=== PATIENT | female | born 1965 | race Caucasian/White ===

== ENCOUNTER → 2016-09-28 | Outpatient (CLI) | payer MEDICARE, MEDICAID | END | disposition home or self-care (01) | LOC: GMAM 10:34 | PROVIDERS: ATTEND Family Medicine | DX: R30.0 Dysuria (principal) ==

== ENCOUNTER → 2016-10-13 | Outpatient (CLI) | payer MEDICARE, MEDICAID ==
--- NOTE | 2016-10-13 12:01 | US ---
EXAM DESCRIPTION: Soft Tissue,Head/Neck ultrasound CLINICAL HISTORY: 51 years Female, palpable abnormality within the left submandibular fossa of the neck. COMPARISON: None. TECHNIQUE: Grayscale and color Doppler imaging of the seventh mandibular soft tissues was performed. FINDINGS: Today's exam revealed bilateral submandibular glands which are prominent on today's study. There is no mass noted on today's exam. No drainable fluid collection. IMPRESSION: Normal appearing bilateral submandibular glands. Continued pain persists CT of the neck is suggested. Electronically signed by: Reed Phipps MD 10/13/2016 12:00 PM NUMERICAL CONTROL ROUTER OPERATOR
== END | disposition home or self-care (01) ==
LOC: US 10:02
PROVIDERS: ATTEND Family Medicine
DX: R93.8 Abnormal findings on diagnostic imaging of other specified body structures (principal)

== ENCOUNTER → 2016-11-01 | Outpatient (CLI) | payer MEDICARE, MEDICAID | END | disposition home or self-care (01) | LOC: GMA 14:18 | PROVIDERS: ATTEND Nurse Practitioner Acute Care | DX: N39.0 Urinary tract infection, site not specified (principal) ==

== ENCOUNTER → 2016-11-30 | Outpatient (CLI) | payer MEDICARE, MEDICAID | LOC: GMAM 17:20 | PROVIDERS: ATTEND Family Medicine | DX: R31.0 Gross hematuria (principal) ==

== ENCOUNTER → 2016-12-19 | Outpatient (CLI) | payer MEDICARE, MEDICAID | END | disposition home or self-care (01) | LOC: GMAM 14:38 | PROVIDERS: ATTEND Family Medicine | DX: N39.0 Urinary tract infection, site not specified (principal) ==

== ENCOUNTER → 2016-12-21 | Outpatient (CLI) | payer MEDICARE, MEDICAID ==
--- NOTE | 2016-12-21 16:58 | MRI ---
EXAM DESCRIPTION: MRI right knee CLINICAL HISTORY: Right knee pain and swelling COMPARISON: None. TECHNIQUE: Multiplanar, multisequence MR images of the right knee FINDINGS: Complex tear posterior horn medial meniscus with involvement of both superior and inferior articular surfaces. Fraying of the articular surfaces with high-grade radial component of tear. Subluxation of the body the meniscus with intrameniscal signal and linear tear extending to the superior tubular surface near the free edge at the junction with the anterior horn. Subluxation of the anterior horn with degenerative intrameniscal signal throughout. Severe medial femorotibial osteoarthritis with full-thickness chondral loss over the majority of the tibia. Mild scalloped remodeling of the anterior half of the tibia with underlying marrow edema and joint line osteophyte. Flattened remodeling of the femoral condyle with joint line osteophyte containing marrow edema. A broad region of marrow edema over the posterior weightbearing condyle over about 2 x 1.8 cm Mild fraying free edge mid body lateral meniscus. No high-grade chondrosis lateral femorotibial No high-grade chondrosis patellofemoral. Mild surface irregularity/low-grade chondral fissuring grade 2 ACL, PCL, MCL and fibular collateral ligaments are intact Biceps femoris, popliteus and iliotibial band tendons are normal Patellar and quadriceps tendons and tendons of the posterior medial knee are intact Moderate joint effusion with mild synovitis. No intra-articular loose body Moderate osteoarthritis proximal tibiofibular articulation with joint line osteophytes. A couple of small subchondral cysts along both sides of the joint. Periarticular ganglion about 1 cm along the anterior joint line IMPRESSION: Complex medial meniscal tear most significantly affecting the posterior horn. Severe medial femorotibial osteoarthritis Electronically signed by: Zeus Conner MD 12/21/2016 4:57 PM CDT
== END | disposition home or self-care (01) ==
LOC: MRI 07:19
PROVIDERS: ATTEND Family Medicine
DX: M25.561 Pain in right knee (principal)

== ENCOUNTER 2017-02-03 16:06 | Emergency (ER) | payer MEDICARE, MEDICAID ==
[2017-02-03 16:18] VITALS: BP 119/80; TEMP 99.2; O2SAT 96
--- NOTE | 2017-02-03 16:36 | ED.PDOC ---
History of Present Illness - General Chief Complaint: Upper Extremity Injury Stated Complaint: left little finger injury Time Seen by Provider: 02/03/17 16:25 Source: patient, RN notes reviewed, Vital Signs reviewed Exam Limitations: no limitations - History of Present Illness Initial Comments: Patient reports she tripped walking into the kitchen and caught her L pinky finger in the refrigerator door causing it to twist and pop. She is now having pain, swelling bruising and inability to bend due to pain and swelling. No numbness or tingling. Occurred: just prior to arrival Pain - Upper Extremity: severe: Hand, left Improving Factors: rest Worsening Factors: movement Allergies/Adverse Reactions: Allergies Penicillins Allergy (Mild, Verified 05/25/16 19:23) Home Medications: Ambulatory Orders Carbamazepine [Tegretol-Xr] 200 mg PO BEDTIME 06/27/14 Carbamazepine [Tegretol-Xr] 400 mg PO ACBK 06/27/14 Escitalopram [Lexapro] 10 mg PO DAILY 06/27/14 Metformin HCl 1,000 mg PO BID 06/27/14 Trazodone HCl 300 mg PO BEDTIME 06/27/14 Simvastatin [Zocor] 20 mg PO BEDTIME 05/26/15 Dicyclomine HCl 20 mg PO TID PRN 05/30/15 HYDROcodone 7.5MG/APAP 325MG [[place] 7.5/325] 1 tab PO .Q4H PRN 05/30/15 Omeprazole Magnesium [Prilosec Otc] 20 mg PO DAILY 05/30/15 Sucralfate Tab [Carafate Tab] 1 gm PO ACHS 05/30/15 Potassium Chloride Tab [K-Dur] 20 meq PO BID #4 tab 01/19/16 Naproxen [Naprosyn] 500 mg PO BID PRN #30 tab 07/18/16 tiZANidine [Zanaflex] 4 mg PO TID PRN #30 tab 07/18/16 Review of Systems - Review of Systems Constitutional: States: no symptoms reported Respiratory: States: no symptoms reported Cardiology: States: no symptoms reported Musculoskeletal: States: see HPI, joint pain - L 5th PIP joint, joint swelling - L 5th PIP joint Skin: States: change in color - bruising L pinky finger Neurological: Denies: numbness, paresthesia, tingling All other Systems: No Change from Baseline Past Medical History (General) - Patient Medical History Hx Seizures: No Hx Stroke: Yes - 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 Hx Asthma: No Hx of COPD: No Hx Cardiac Disorders: Yes - [place] in her 20's Hx Congestive Heart Failure: No Hx Pacemaker: No Hx Hypertension: No Hx Diabetes: Yes Hx Gastroesophageal Reflux: No Hx MRSA: No Surgical History: cholecystectomy, Hysterectomy - Vaccination History Hx Tetanus, Diphtheria Vaccination: No Hx Influenza Vaccination: No Hx Pneumococcal Vaccination: No - Social History Hx Tobacco Use: No Hx Alcohol Use: No Hx Substance Use: No Hx Substance Use Treatment: No Hx Depression: Yes Hx Physical Abuse: No Hx Emotional Abuse: No - Female History Patient : No Family Medical History - Family History Mother Family History: No Known Living Status: Physical Exam - Physical Exam General Appearance: Alert, Comfortable, No apparent distress, Well Developed, Well Groomed, Well Hydrated, Well Nourished Cardiovascular/Respiratory: other - Brisk capillary refill L fingers Elbow/Forearm Exam: normal inspection, no evidence of injury, normal ROM Wrist Exam: normal inspection, non-tender, no evidence of injury, normal ROM Hand Exam: bone tenderness - L 5th PIP joint, ecchymosis - L 5th PIP joint, limited ROM - L 5th digit due to pain and swelling, soft tissue tenderness, stiffness, swelling Neuro/Tendon: normal sensation, normal motor functions, normal tendon functions , responds to pain Mental Status: alert, oriented x 3 Skin Exam: normal color, warm/dry Progress - EKG/XRAY/CT XRAY: L 5th digit: no fracture Procedures - Splinting Left 5th Digit Hand Pre-Made Type: metal - Aluminum foam finger splint Pre-Proc Neuro Vasc Exam: normal Post-Proc Neuro Vasc Exam: normal Departure - Departure Clinical Impression: Sprain of fifth finger of left hand Qualifiers: Encounter type: initial encounter Qualified Code(s): S63.617A - Unspecified sprain of left little finger, initial encounter Time of Disposition: 16:47 Disposition: Discharge to Home or Self Care Condition: Good Departure Forms: ED Discharge - Pt. Copy, Patient Portal Self Enrollment Instructions: DI for Finger Sprain Diet: resume usual diet Activity: increase activity as tolerated Referrals: Zeus Cheney MD [Primary Care Provider] - 1-2 Weeks Home Medications: Ambulatory Orders Carbamazepine [Tegretol-Xr] 200 mg PO BEDTIME 06/27/14 Carbamazepine [Tegretol-Xr] 400 mg PO ACBK 06/27/14 Escitalopram [Lexapro] 10 mg PO DAILY 06/27/14 Metformin HCl 1,000 mg PO BID 06/27/14 Trazodone HCl 300 mg PO BEDTIME 06/27/14 Simvastatin [Zocor] 20 mg PO BEDTIME 05/26/15 Dicyclomine HCl 20 mg PO TID PRN 05/30/15 HYDROcodone 7.5MG/APAP 325MG [[place] 7.5/325] 1 tab PO .Q4H PRN 05/30/15 Omeprazole Magnesium [Prilosec Otc] 20 mg PO DAILY 05/30/15 Sucralfate Tab [Carafate Tab] 1 gm PO ACHS 05/30/15 Potassium Chloride Tab [K-Dur] 20 meq PO BID #4 tab 01/19/16 Naproxen [Naprosyn] 500 mg PO BID PRN #30 tab 07/18/16 tiZANidine [Zanaflex] 4 mg PO TID PRN #30 tab 07/18/16
--- NOTE | 2017-02-03 16:43 | RAD ---
EXAM DESCRIPTION: Fingers,Left CLINICAL HISTORY: 52 years Female pain,bruising,swelling COMPARISON: None. TECHNIQUE: Left finger, three views FINDINGS: No acute fractures or dislocations are identified. No osseous destructive lesions. No radiopaque foreign object noted. IMPRESSION: No acute fracture is identified. Electronically signed by: Inez Amado 02/03/2017 4:42 PM CDT
== END 2017-02-03 16:53 | disposition home or self-care (01) ==
LOC: ER 16:06
DX: S63.617A Unspecified sprain of left little finger, initial encounter (principal); I25.2 Old myocardial infarction; E11.9 Type 2 diabetes mellitus without complications; Z88.0 Allergy status to penicillin; Z86.73 Personal history of transient ischemic attack (TIA), and cerebral infarction without residual deficits; Z79.899 Other long term (current) drug therapy; X50.1XXA Overexertion from prolonged static or awkward postures, initial encounter; Y92.000 Kitchen of unspecified non-institutional (private) residence as the place of occurrence of the external cause

== ENCOUNTER → 2017-02-10 | Outpatient (CLI) | payer MEDICARE, MEDICAID ==
--- NOTE | 2017-02-10 14:52 | CT ---
EXAM DESCRIPTION: Abdomen/Pelvis w/wo Contrast CLINICAL HISTORY: 52 years,Female,GROSS HEMATURIA R31.0 COMPARISON: None TECHNIQUE: Multiple axial tomographic images were obtained of the abdomen and pelvis with and without IV contrast and oral contrast. Then reconstructed in sagittal and coronal planes. This exam was performed using radiation doses that are As Low As Reasonably Achievable (ALARA). FINDINGS: The kidneys are unremarkable The adrenal glands are unremarkable. The spleen is unremarkable. The liver is unremarkable. The pancrease is unremarkable. The gallbladder surgically absent. The included bowel is unremarkable. The appendix not seen present be surgically absent. Uterus and ovaries not seen also present be surgically absent.. There is no free air, free fluid, masses, or significant adenopathy. There is a small supraumbilical midline hernia measuring about 1.5 cm in diameter with omental fat only in the hernia sac. There is also a TENS unit and generator seen on the left.. IMPRESSION: No acute findings. There is a small midline supraumbilical hernia containing omental fat only. Electronically signed by: Tarik Jones MD 02/10/2017 2:50 PM CDT
== END | disposition home or self-care (01) ==
LOC: CT 09:04
PROVIDERS: ATTEND Urology
DX: R31.0 Gross hematuria (principal)

== ENCOUNTER → 2017-02-20 | Outpatient (CLI) | payer MEDICARE, MEDICAID ==
--- NOTE | 2017-02-20 11:35 | RAD ---
EXAM DESCRIPTION: Ankle,Right 3 Views CLINICAL HISTORY: 52 years, Female, PAIN IN RIGHT ANKLE AND JOINTS OF THE FOOT COMPARISON: May 12, 2015 TECHNIQUE: AP/lateral/oblique of the ankle FINDINGS: Bony structures are markedly osteopenic and interval internal fixation of the medial malleolus with two anchoring screws is noted in comparison to remote prior study. The ankle mortise is well-maintained and no evidence of osteonecrosis of the talus is evident. Calcaneal spurring is unchanged from 2015 study. Previous internal fixation at the midfoot at the junction of the second metatarsal and cuneiform is noted. No acute fracture or disruption of the ankle mortise is noted. IMPRESSION: 1. Osteopenic bony structures with mild degenerative changes and interval internal fixation of the medial malleolus since 2015 study. No acute abnormality noted. Electronically signed by: Zeus Mercer MD 02/20/2017 11:33 AM CDT
--- NOTE | 2017-02-20 11:37 | RAD ---
EXAM DESCRIPTION: Foot,Right 3 Views CLINICAL HISTORY: 52 years, Female, PAIN IN RIGHT FOOT COMPARISON: September 21, 2010 TECHNIQUE: AP, lateral, and oblique views of the right foot FINDINGS: Bony right foot is osteopenic with marked enthesophyte formation at the origin of the plantar arch, unchanged from remote prior study. Interval internal fixation with a single screw at the base of the second metatarsal with the second cuneiform is noted. I am suspicious there is fusion of the base of the second and possibly the third metatarsals to the cuneiforms. An accessory ossicle adjacent to the cuboid is noted. I suspect the joint space between the base of the first metatarsal and cuneiform is intact. IMPRESSION: Osteopenic and modestly degenerative right foot with internal fixation and probable bony fusion at the base of the second metatarsal and possibly the third metatarsal. No acute injury or fracture or stress reaction seen. Electronically signed by: Zeus Mercer MD 02/20/2017 11:36 AM CDT
== END ==
LOC: RAD 08:23
PROVIDERS: ATTEND Orthopaedic Surgery
DX: M79.671 Pain in right foot (principal); M25.571 Pain in right ankle and joints of right foot

== ENCOUNTER → 2017-03-16 | Outpatient (CLI) | payer MEDICARE, MEDICAID | END | disposition home or self-care (01) | LOC: LAB.O 08:10 | PROVIDERS: ATTEND Orthopaedic Surgery | DX: Z01.818 Encounter for other preprocedural examination (principal) ==

== ENCOUNTER → 2017-03-27 | Outpatient (CLI) | payer MEDICARE, MEDICAID ==
--- NOTE | 2017-03-27 16:03 | RAD ---
EXAM DESCRIPTION: Pelvis CLINICAL HISTORY: 52 years Female, RT HIP PAIN COMPARISON: None. FINDINGS: Single AP view of the pelvis shows no displaced right hip or other pelvic fracture. The hip joints are anatomically aligned and the joint spaces are fairly well-maintained. Visualized portions of the lumbar spine are unremarkable. IMPRESSION: Negative exam. Electronically signed by: Michael Pinon MD 03/27/2017 4:02 PM CDT Workstation: [facility]
== END | disposition home or self-care (01) ==
LOC: RAD 09:37
PROVIDERS: ATTEND Orthopaedic Surgery
DX: M25.551 Pain in right hip (principal)

== ENCOUNTER 2017-03-29 05:41 | Inpatient (IN) | payer MEDICARE, MEDICAID ==
--- NOTE | 2017-03-28 08:40 | HP ---
CHIEF COMPLAINT: Right knee pain. HISTORY OF PRESENT ILLNESS: Randa is a 52-year-old female with a history of pain in the right knee that has been going on for quite sometime. She has had no trauma related to that, denies any neurologic symptoms or radiation of pain. She does have some feelings of instability and also has popping which causes severe pain. She denies any distinct locking. She has had injections as well as anti-inflammatories. She has had activity modification. Unfortunately, she has been unable to gain any relief. Because of her failure of relief, she has requested operative intervention. After discussing the risks, benefits and alternatives to that, the patient has given informed consent. PAST SURGICAL HISTORY: 1. Multiple surgeries on both her foot and ankle. MEDICATIONS: 1. Potassium. 2. Vitamins. 3. Metformin. 4. Magnesium. 5. Cyclobenzaprine. ALLERGIES: PENICILLIN. CODE STATUS: Unknown. IMMUNIZATIONS: Up to date. SOCIAL HISTORY: The patient does not drink, smoke or use any illicit drugs. FAMILY HISTORY: None pertinent to today's complaint. REVIEW OF SYSTEMS: Negative except as indicated in the History of Present Illness. PHYSICAL EXAMINATION: VITAL SIGNS: Blood pressure 120/74. Pulse 65. Height 5'4". Weight 186. MENTAL STATUS: The patient is awake, alert, and is able to give a good history and participate in the physical. The patient is oriented to person, place and time. SKIN: Normal tone and turgor. HEENT: Normocephalic, atraumatic. Pupils equal, round and reactive. Mucosal membranes are moist. NECK: Normal range of motion. No thyromegaly, no lymphadenopathy. CHEST: Normal respiratory excursion. CARDIAC: Regular rate and rhythm. No murmurs, rubs or gallops. MUSCULOSKELETAL: Bilateral upper extremities show full active range of motion. She has intact sensation. They are warm and well perfused. There are no deformities. Strength is 5/5. The left lower extremity shows no significant pain with range of motion of the hip or knee. Sensation is intact in the extremity and it is warm and well perfused. She has no varus/valgus or anterior/posterior laxity. She has no overall malalignment. The right lower extremity shows pain diffusely about the knee, but very prominent along the joint-line. She has crepitus throughout her range of motion. She has some pretty significant pain with patella mobilization. She has very slight laxity in varus/valgus testing relative to the contralateral side. IMAGING: X-rays show advanced arthritis of the knee. ASSESSMENT: 1. Arthritis. PLAN: Because of her severe symptoms, ongoing pain and failure of anti- inflammatories, injection and activity modification, she requested operative intervention. We have discussed the risks, benefits, and alternatives to operative intervention and the patient has given informed consent for total knee arthroplasty. #[id number] [facility]
[2017-03-29] MEDS ORDERED: LACTATED RINGERS 1,000 ML ONE (05:54)
[2017-03-29] MEDS ORDERED: SODIUM CHL 0.9% 100ML MINI-BAG 100 ML IVPB ONE (05:54)
[2017-03-29] MEDS ORDERED: SODIUM CHLORIDE 0.9% 100ML 100 ML IVPB ONE (05:55)
[2017-03-29] MEDS ORDERED: VANCOMYCIN HCL INJ 1,000 MG VIAL IVPB ONE ×3 (05:55→18:30)
[2017-03-29] MEDS ORDERED: TRANEXAMIC ACID 1,000 MG/10 ML VIAL ONE ×2 (05:55→05:56)
[2017-03-29] MEDS ORDERED: SODIUM CHLORIDE 0.9% 250ML 250 ML ONE ×2 (05:55→18:30)
[2017-03-29] MEDS ORDERED: ceFAZolin SODIUM 1 GM VIAL ONE ×2 (05:55→08:45)
[2017-03-29] MEDS ORDERED: BUPIVACAINE 0.25% W/EPI 50 ML VIAL INJ ONE (08:45)
[2017-03-29] MEDS ORDERED: MORPHINE SULFATE *EPIDURAL* 0.5 MG/ML VIAL ONE (08:50)
[2017-03-29] MEDS ORDERED: fentaNYL CITRATE INJ 50 MCG/ML AMP ONE (08:50)
[2017-03-29] MEDS ORDERED: ACETAMINOPHEN IV 1000MG 100 ML ONE (08:50)
[2017-03-29] MEDS ORDERED: MIDAZOLAM INJ 5 MG/5 ML VIAL ONE (08:50)
[2017-03-29] MEDS ORDERED: MORPHINE PCA 1 MG/ML 100 ML BAG IVPB ONE (11:52)
[2017-03-29] MEDS ORDERED: ZOLPIDEM TARTRATE 5 MG TAB PO PRN (11:57)
[2017-03-29] MEDS ORDERED: BENZOCAINE-MENTH LOZ (CEPACOL) 1 EA LOZ MT PRN (11:57)
[2017-03-29] MEDS ORDERED: DEX 5% W/NACL 0.45% 1000ML 1,000 ML IVS PRN (11:57)
[2017-03-29] MEDS ORDERED: TEMAZEPAM 15 MG CAP PO PRN (11:57)
[2017-03-29] MEDS ORDERED: PROMETHAZINE HCL INJ 25 MG in SODIUM CHLORIDE 0.9% 50ML 50 ML IVPB PRN (11:57)
[2017-03-29] MEDS ORDERED: ACETAMINOPHEN 500 MG TAB PO PRN (11:57)
[2017-03-29] MEDS ORDERED: TRANEXAMIC ACID INJ 1,000 MG in SODIUM CHLORIDE 0.9% 100ML 100 ML IVPB ONE (11:57)
[2017-03-29] MEDS ORDERED: MORPHINE SULFATE INJ 10 MG/ML VIAL IM PRN (11:57)
[2017-03-29] MEDS ORDERED: MAGNESIUM HYDROXIDE 30 ML UD PO PRN (11:57)
[2017-03-29] MEDS ORDERED: HYDROcodone 5MG/APAP 325MG 1 EA TAB PO PRN (11:57)
[2017-03-29] MEDS ORDERED: NALOXONE HCL INJ 0.4 MG/ML VIAL IV PRN (11:57)
[2017-03-29] MEDS ORDERED: PROMETHAZINE HCL INJ 12.5 MG in SODIUM CHLORIDE 0.9% 50ML 50 ML IVPB PRN (11:57)
[2017-03-29] MEDS ORDERED: SODIUM CHLORIDE 0.9% (FLUSH) 10 ML SYG IV PRN (11:57)
[2017-03-29] MEDS ORDERED: BISACODYL SUPPOSITORY 10 MG PR PRN (11:57)
[2017-03-29] MEDS ORDERED: MORPHINE SULFATE INJ 10 MG/ML VIAL IV PRN (11:57)
[2017-03-29] MEDS ORDERED: ALUMINUM & MAGNESIUM HYDROXIDE 30 ML UD PO PRN (11:57)
[2017-03-29] MEDS ORDERED: ACETAMINOPHEN 325 MG TAB PO PRN (11:57)
[2017-03-29] MEDS ORDERED: raNITIdine HCL INJ 25 MG/ML VIAL IV ONE (12:00)
[2017-03-29] MEDS ORDERED: MORPHINE PCA 1 MG/ML 100ML 1 BAG in PREMIX BAG 1 BAG IVPB SCH (12:00)
[2017-03-29] MEDS ORDERED: DEXAMETHASONE INJ 10 MG/ML VIAL IV ONE (12:00)
[2017-03-29] MEDS ORDERED: SODIUM CHLORIDE 0.9% 50 ML VIAL INJ ONE (12:00)
[2017-03-29] MEDS ORDERED: LIDOCAINE 1% 10 ML VIAL INJ ONE (12:00)
[2017-03-29] MEDS ORDERED: PROPOFOL 200 MG/20 ML VIAL IV ONE (12:00)
[2017-03-29] MEDS: ONDANSETRON INJ 4 MG/2 ML VIAL IV PRN (12:43)
--- NOTE | 2017-03-29 13:58 | OP ---
DATE OF PROCEDURE: 03/29/17 PREOPERATIVE DIAGNOSIS: 1. Osteoarthritis of the knee. POSTOPERATIVE DIAGNOSIS: 1. Osteoarthritis of the knee. PROCEDURE: 1. Total knee arthroplasty. SURGEON: Patricio Moon MD. BOARD OF EDUCATION SECRETARY: Christiano Piña CST, SA-C. ANESTHESIA: General. COMPLICATIONS: None. FINDINGS: Severe arthritis of the knee. INDICATION: Ms. Villanueva has a history of pain that has been getting progressively worse and has failed conservative measures. Because of ongoing pain and failure of conservative measures, she has requested total knee arthroplasty. After discussing the risks, benefits and alternatives to that, the patient has given informed consent for total knee arthroplasty. PROCEDURE: The patient was brought to the Operating Room and placed in supine position. General anesthesia was induced and the patient's leg was sterilely prepped and draped. Following prepping and draping, the distal femur was exposed and using an intramedullary guide, the distal femoral cut was made. The appropriate sized cutting block was measured, pinned into place, and the anterior, posterior, and chamfer cuts were made. The ACL was transected and the tibia was subluxed. Both the medial and lateral menisci were removed. An intramedullary guide was used to make the proximal tibial cut. The appropriate sized base plate was placed and a trial polyethylene was placed. The trial femur was placed, the knee was reduced, and the knee was taken through a range of motion. The knee was stable in anterior, posterior, varus and valgus stress. The patella tracked anatomically without evidence of subluxation or dislocation. After trialing, the trial components were removed and the bony surfaces were thoroughly irrigated with saline. Following irrigation, the surfaces were dried and the final components were cemented into place. The excess cement was removed and the remaining cement was allowed to cure. The knee was again taken through a range of motion to confirm stability. The wound was then irrigated with saline and closure was performed using PDS to approximate the arthrotomy followed by closure of the subcutaneous tissues with a combination of running and interrupted Monocryl sutures. Sterile dressing was placed. The patient was awoken from anesthesia and taken to Recovery. POSTOPERATIVE INSTRUCTIONS: The patient will be weight-bearing as tolerated on postoperative day 1. COMPONENTS: [employer] Triathlon knee, size 3 femur, size 3 tibia, 9 mm insert. #[id number] [facility]
[2017-03-29] MEDS ORDERED: SODIUM CHLORIDE 0.45% 1000ML 1,000 ML IVS PRN (14:35)
[2017-03-29] MEDS: IV SET AND CAP CHANGE INJ INJ SCH (16:01)
[2017-03-29] MEDS: CEFAZOLIN SODIUM 2 GRAMS IV 50 ML IVPB SCH ×2 (16:19→23:59)
[2017-03-29] MEDS: CELECOXIB 100 MG CAP PO SCH (16:45)
[2017-03-29] MEDS ORDERED: GLUCAGON INJ 1 MG VIAL SUBCU PRN (18:27)
[2017-03-29] MEDS ORDERED: DEXTROSE 50% 25 GM/50 ML SYG IV PRN (18:27)
[2017-03-29] MEDS ORDERED: PANTOPRAZOLE SODIUM IV 40 MG VIAL IV SCH (18:30)
[2017-03-29] MEDS: VANCOMYCIN HCL INJ 1,000 MG in SODIUM CHLORIDE 0.9% 250ML 250 ML IVPB SCH (18:34)
--- NOTE | 2017-03-29 18:56 | CONS ---
DATE OF CONSULTATION: 03/29/17 SUPERVISING PHYSICIAN: Geronimo Santos M.D. CHIEF COMPLAINT: Right knee pain. HISTORY OF PRESENT ILLNESS: This is a 52 year-old female with a history of pain in the right knee that has been going on for several years. She has feelings of instability and popping, and this causes her severe pain. She has had injections in the knee as well as been on antiinflammatories and after conservative measures have failed, she has requested Dr. Patricio Moon for surgical intervention. I am seeing the patient postoperatively after a right total knee arthroplasty. PAST MEDICAL HISTORY: 1. Gastroesophageal reflux disease. 2. Osteopenia. 3. Type 2 diabetes mellitus. 4. Bipolar disorder. 5. Anxiety with depression. 6. Migraine headaches. 7. Hyperlipidemia. 8. Obstructive sleep apnea. PAST SURGICAL HISTORY: 1. Cholecystectomy. 2. Hysterectomy. 3. Tubal ligation. 4. Spine surgery. 5. Open reduction and internal fixation of right foot. OUTPATIENT MEDICATIONS: Per the EMR and awaiting verification. ALLERGIES: PENICILLIN. SOCIAL HISTORY: She is disabled. She is . She has 3 children. She quit smoking in 1989. She denies any ETOH or illicit drug use. REVIEW OF SYSTEMS: Negative except as per history of present illness. PHYSICAL EXAMINATION: VITAL SIGNS: She is afebrile, heart rate 68, blood pressure 128/80, respiratory rate 16, O2 sat is 94% on 2 liters nasal cannula. GENERAL: This is a 52 year-old female patient who is lying in her hospital bed. She is in no acute distress. HEENT: Normocephalic and atraumatic. Pupils are equal and reactive. Oropharynx is clear. Oral mucous membranes are moist. NECK: Supple without mass. CHEST: Clear to auscultation bilaterally. There is equal rise and fall of the chest with inspiration and expiration. HEART: Regular rate and rhythm. ABDOMEN: Soft, nondistended, non-tender. Bowel sounds are positive. EXTREMITIES: Bilateral pedal pulses are palpable at +2. She has an Iceman in place to the right knee. Her dressing is dry and intact. NEUROLOGIC: She is awake, alert and oriented times three. LABORATORY: Glucose is 101. There are no other labs to report. Films as per the EMR. ASSESSMENT: 1. Osteoarthritis status post right total knee arthroplasty performed by Dr. Patricio Moon, orthopedic surgeon, postoperative day number zero. 2. Gastroesophageal reflux disease. 3. Diabetes mellitus type 2. 4. Hyperlipidemia. 5. Bipolar disorder. 6. Anxiety with depression. PLAN: We will continue present supportive care. Orthopedic issues will be per Dr. Moon, orthopedic surgeon. Tomorrow she will begin her strengthening and conditioning with Physical Therapy. I have restarted her home medications, including sliding scale insulin. I have also given her a dose of Protonix. We will continue to monitor her closely and followup as needed. Dr. Santos is the collaborating physician available for consultation. #[id number] [facility]
[2017-03-29] MEDS ORDERED: ENOXAPARIN SODIUM 30 MG/0.3 ML SYG SUBCU ONE (20:30)
[2017-03-29] MEDS ORDERED: CYCLOBENZAPRINE HCL 10 MG TAB PO PRN (20:51)
[2017-03-29] MEDS ORDERED: ELETRIPTAN HYDROBROMIDE 20 MG PO PRN (20:51)
[2017-03-29] MEDS ORDERED: TRAZODONE HCL 350 MG PO SCH (21:00)
[2017-03-29] MEDS ORDERED: carBAMazepine 200 MG TAB ONE (21:23)
[2017-03-29] MEDS: ENOXAPARIN SODIUM 30 MG/0.3 ML SYG SUBCU SCH (21:30)
[2017-03-29] MEDS: CARBAMAZEPINE 200 MG PO SCH (21:30)
[2017-03-29] MEDS: metFORMIN HCL 500 MG TAB PO SCH (21:30)
[2017-03-29] MEDS: POTASSIUM CHLORIDE 20 MEQ TAB PO SCH (21:30)
[2017-03-29] MEDS: DOCUSATE CALCIUM 240 MG CAP PO SCH (21:30)
[2017-03-29] MEDS: SIMVASTATIN 20 MG TAB PO SCH (21:34)
[2017-03-29] MEDS: INSULIN LISPRO 100 UNITS/ML PEN SUBCU SCH (22:28)
[2017-03-29] MEDS ORDERED: traZODone HCL 50 MG TAB ONE (22:29)
[2017-03-29] MEDS ORDERED: traZODone HCL 100 MG TAB PO ONE (22:30)
[2017-03-30] MEDS ORDERED: SODIUM CHLORIDE 0.9% 250ML 250 ML ONE (04:55)
[2017-03-30] MEDS ORDERED: VANCOMYCIN HCL INJ 1,000 MG VIAL IVPB ONE (04:55)
[2017-03-30] MEDS: VANCOMYCIN HCL INJ 1,000 MG in SODIUM CHLORIDE 0.9% 250ML 250 ML IVPB SCH (05:24)
[2017-03-30] MEDS ORDERED: ESCITALOPRAM 10 MG TAB ONE (06:37)
[2017-03-30] MEDS: CARBAMAZEPINE 400 MG PO SCH (06:39)
[2017-03-30] MEDS: CYCLOBENZAPRINE HCL 10 MG TAB PO PRN (06:40)
[2017-03-30] MEDS ORDERED: NON-FORMULARY MEDICATION 1 EA MIS (Escitalopram Oxalate [Lexapro] 20 MG) PO SCH (07:00)
[2017-03-30] MEDS: INSULIN LISPRO 100 UNITS/ML PEN SUBCU SCH ×4 (07:30→21:09)
[2017-03-30] MEDS: CELECOXIB 100 MG CAP PO SCH ×2 (07:59→17:32)
--- NOTE | 2017-03-30 08:14 | PN ---
DATE: 03/30/17 SUBJECTIVE: Ms. Villanueva is doing okay and she is getting adequate pain control, but does have her leg bent right now at 45 degrees. OBJECTIVE: Afebrile. Vital signs stable. The dressing is clean without any staining or drainage. ASSESSMENT: Status post total knee arthroplasty. PLAN: She will begin weight-bearing as tolerated today and continue with the CPM. #[id number] [facility]
[2017-03-30] MEDS: CEFAZOLIN SODIUM 2 GRAMS IV 50 ML IVPB SCH (09:06)
[2017-03-30] MEDS: MAGNESIUM OXIDE 400 MG TAB PO SCH (09:47)
[2017-03-30] MEDS: POTASSIUM CHLORIDE 20 MEQ TAB PO SCH ×2 (09:47→17:32)
[2017-03-30] MEDS: metFORMIN HCL 500 MG TAB PO SCH ×2 (09:47→17:33)
[2017-03-30] MEDS: HYDROcodone 10MG/APAP 325MG 1 EA TAB PO PRN ×2 (10:17→17:33)
[2017-03-30] MEDS: ENOXAPARIN SODIUM 30 MG/0.3 ML SYG SUBCU SCH ×2 (11:00→22:50)
--- NOTE | 2017-03-30 13:27 | RAD ---
EXAM DESCRIPTION: Knee,Right 2 or More Views CLINICAL HISTORY: 52 years Female, TKA COMPARISON: None. FINDINGS: 2 views of the right knee show postoperative changes related to recent right knee arthroplasty. No hardware complication is identified. Gas and fluid in the right knee joint space is also likely related to recent surgery. No suspicious foreign body. IMPRESSION: Uncomplicated postoperative changes in the right knee as detailed above. Electronically signed by: Michael Pinon MD 03/30/2017 1:25 PM CDT
[2017-03-30] MEDS: PANTOPRAZOLE SODIUM TAB 40 MG PO SCH (17:32)
--- NOTE | 2017-03-30 18:03 | PN ---
DATE: 03/30/17 SUPERVISING PHYSICIAN: Geronimo Santos M.D. SUBJECTIVE: The patient is sleeping in her hospital bed. She is quite lethargic but she does awaken and answer some simple questions easily. Nursing staff has reported that she reports quite a bit of pain, although she is fairly lethargic at this time and has no complaints of pain or nausea and vomiting. OBJECTIVE: VITAL SIGNS: T max 24 hours is 99.2, pulse rate 81, blood pressure 128/76, respiratory rate 18, O2 sat is 93% on room air. RESPIRATORY: Clear to auscultation bilaterally. Slightly diminished at the bases. CARDIAC: Regular rate and rhythm. ABDOMEN: Soft, nondistended, non-tender. Bowel sounds are positive. EXTREMITIES: Bilateral pedal pulses are +2 and palpable. Her right knee has an Iceman in place and the CPM machine is in use at this time. NEUROLOGIC: She is lethargic. She awakens easily, answers simple yes/no questions at this time. LABORATORY: Hemoglobin 11.7, hematocrit 36. Blood sugars have alternated between 101 and 224. All other labs and films have been reviewed via the EMR. ASSESSMENT: 1. Osteoarthritis status post right total knee arthroplasty performed by Dr. Patricio Moon, orthopedic surgeon, postoperative day #1. 2. Gastroesophageal reflux disease. 3. Diabetes mellitus type 2. 4. Hyperlipidemia. 5. Bipolar disorder. 6. Anxiety with depression. PLAN: We will continue present supportive care. I have encouraged good pulmonary hygiene, especially since she had a low-grade temperature and I will order EzPAP. Orthopedic issues will be per Dr. Moon. She will continue her strengthening and conditioning with Physical Therapy. It was brought to my attention that she cannot afford her Xarelto, so she has some samples of 15 mg Xarelto in her med drawer. Paulina Acosta, our Hat Ironer, is going to okay that with Dr. Moon. There is also a question as to where she is going to do her rehab after she is discharged, and Paulina will be able to fill us in on that. She was complaining of pain and that her INTEGRATION DIRECTOR was ineffective. I have gone down on her INTEGRATION DIRECTOR pump interval and slightly increased her oral pain medications, although those may have to be adjusted if she continues to be lethargic. We will monitor her closely and follow as needed. Dr. Santos is the collaborating physician available for consultation. [facility][id number] [facility]
[2017-03-30] MEDS ORDERED: traZODone HCL 100 MG TAB PO ONE (19:22)
[2017-03-30] MEDS: TRAZODONE HCL PO SCH ×2 (20:24)
[2017-03-30] MEDS: SIMVASTATIN 20 MG TAB PO SCH (20:24)
[2017-03-30] MEDS: DOCUSATE CALCIUM 240 MG CAP PO SCH (20:24)
[2017-03-30] MEDS: ALBUTEROL SULFATE 2.5 MG/3 ML VIAL NEB SCH (20:25)
[2017-03-30] MEDS: CARBAMAZEPINE 200 MG PO SCH (20:26)
[2017-03-31] MEDS: CYCLOBENZAPRINE HCL 10 MG TAB PO PRN ×3 (01:08→22:44)
[2017-03-31] MEDS: HYDROcodone 10MG/APAP 325MG 1 EA TAB PO PRN ×5 (01:08→19:55)
[2017-03-31] MEDS: PANTOPRAZOLE SODIUM TAB 40 MG PO SCH (05:53)
[2017-03-31] MEDS: INSULIN LISPRO 100 UNITS/ML PEN SUBCU SCH ×4 (07:43→21:13)
[2017-03-31] MEDS: ESCITALOPRAM 10 MG TAB PO SCH (07:45)
[2017-03-31] MEDS: CARBAMAZEPINE 400 MG PO SCH (07:45)
[2017-03-31] MEDS: CELECOXIB 100 MG CAP PO SCH ×2 (07:45→16:33)
[2017-03-31] MEDS: metFORMIN HCL 500 MG TAB PO SCH ×2 (07:46→16:33)
[2017-03-31] MEDS: POTASSIUM CHLORIDE 20 MEQ TAB PO SCH ×2 (07:47→16:33)
--- NOTE | 2017-03-31 08:04 | PN ---
DATE: 03/31/17 SUBJECTIVE: Ms. Villanueva is doing pretty well today and she did well with physical therapy yesterday per report. OBJECTIVE: Afebrile. Vital signs stable. Wound is clean. There are no signs or symptoms of infection. ASSESSMENT: Status post total knee arthroplasty. PLAN: She will continue with weight-bearing as tolerated. She will be discharged when all the goals are met. [facility][id number] [facility]
[2017-03-31] MEDS: MAGNESIUM OXIDE 400 MG TAB PO SCH (08:18)
[2017-03-31] MEDS: SODIUM CHLORIDE 0.9% (FLUSH) 10 ML SYG IV SCH ×2 (08:19→21:14)
[2017-03-31] MEDS: ALBUTEROL SULFATE 2.5 MG/3 ML VIAL NEB SCH ×3 (08:22→20:40)
[2017-03-31] MEDS: ENOXAPARIN SODIUM 30 MG/0.3 ML SYG SUBCU SCH ×2 (10:13→22:44)
--- NOTE | 2017-03-31 14:23 | PN ---
DATE: 03/31/17 SUBJECTIVE: The patient is ambulating in the hallway and admitting that there is a fair amount of pain. She also has diminished appetite and will be encouraged to continue with proper and adequate nutritional support. OBJECTIVE: VITAL SIGNS: Afebrile. Pulse 87. Blood pressure 135/85. Pulse oximetry 96% on room air. GENERAL: She is able to ambulate, though complaining of a fair amount of pain in the right knee. No draining into the dressing of the right knee. LUNGS: Clear. HEART: Regular. ABDOMEN: No bowel movement recently. Will attempt to discuss with the physical therapist the patient's progress and whether she will need the consideration of Swing Bed continued rehabilitation in the near future. ASSESSMENT: 1. Postoperative day #2 status post total knee arthroplasty performed by Dr. Patricio Moon, orthopedic surgeon, because of intractable pain, unresponsive to outpatient intervention and requiring surgical intervention for symptom relief. 2. Osteoarthritis, especially involving the right knee and requiring surgical intervention to assist with symptom control. 3. History of gastroesophageal reflux disease. 4. History of diabetes mellitus, type 2. 5. History of hyperlipidemia. 6. History of bipolar disorder. 7. History of anxiety with associated depression. PLAN: We will continue with ongoing physical therapy under orthopedic supervision. We will discuss with them as to whether the patient would benefit from Swing Bed rehabilitation to continue until the patient is safe to return home. At that time, she will need to be continued on Xarelto for a total of 12 days. Social Service is helping to make the Xarelto available. Continue with proper nutrition and consider Milk of Magnesia to assist with constipation treatment. #[id number] [facility]
[2017-03-31] MEDS ORDERED: traZODone HCL 50 MG TAB ONE (19:43)
[2017-03-31] MEDS ORDERED: traZODone HCL 100 MG TAB PO ONE (19:43)
[2017-03-31] MEDS: ONDANSETRON INJ 4 MG/2 ML VIAL IV PRN (20:23)
[2017-03-31] MEDS: TRAZODONE HCL PO SCH ×2 (21:13)
[2017-03-31] MEDS: SIMVASTATIN 20 MG TAB PO SCH (21:14)
[2017-03-31] MEDS: DOCUSATE CALCIUM 240 MG CAP PO SCH (21:14)
[2017-03-31] MEDS: CARBAMAZEPINE 200 MG PO SCH (21:15)
[2017-03-31] MEDS: carBAMazepine 200 MG TAB PO SCH (21:32)
[2017-04-01] MEDS: HYDROcodone 10MG/APAP 325MG 1 EA TAB PO PRN ×5 (00:36→20:18)
[2017-04-01] MEDS: ESCITALOPRAM 10 MG TAB PO SCH (06:42)
[2017-04-01] MEDS: PANTOPRAZOLE SODIUM TAB 40 MG PO SCH (06:42)
[2017-04-01] MEDS: ALBUTEROL SULFATE 2.5 MG/3 ML VIAL NEB SCH ×3 (07:59→20:48)
[2017-04-01] MEDS: INSULIN LISPRO 100 UNITS/ML PEN SUBCU SCH ×4 (08:23→21:07)
[2017-04-01] MEDS: metFORMIN HCL 500 MG TAB PO SCH ×2 (08:23→16:59)
[2017-04-01] MEDS: carBAMazepine 200 MG TAB PO SCH ×2 (08:24→21:08)
[2017-04-01] MEDS: SODIUM CHLORIDE 0.9% (FLUSH) 10 ML SYG IV SCH ×2 (08:24→21:07)
[2017-04-01] MEDS: POTASSIUM CHLORIDE 20 MEQ TAB PO SCH ×2 (08:24→17:00)
[2017-04-01] MEDS: CELECOXIB 100 MG CAP PO SCH ×2 (08:24→17:00)
[2017-04-01] MEDS: MAGNESIUM OXIDE 400 MG TAB PO SCH (08:24)
[2017-04-01] MEDS: ENOXAPARIN SODIUM 30 MG/0.3 ML SYG SUBCU SCH ×2 (11:16→22:44)
[2017-04-01] MEDS: IV SET AND CAP CHANGE INJ INJ SCH (16:21)
[2017-04-01] MEDS: levoFLOXacin 500 MG TAB PO SCH (16:59)
--- NOTE | 2017-04-01 17:04 | PN ---
DATE: 04/01/17 SUBJECTIVE: The patient is smiling and, in fact, feels much better. She is able to get out of bed generally by herself. We will need to discuss with her family her support system at home and anticipate equipment when she does get home to facilitate ongoing care, less reid to the bathroom as she has had before but a repeat urinalysis has been ordered. OBJECTIVE: VITAL SIGNS: Afebrile. Pulse 88. Blood pressure 122/78. Pulse oximetry 99%, GENERAL: The patient is awake and alert. LUNGS: Clear. HEART: Tones are regular. ABDOMEN: Soft, no draining into the dressings of the right knee. LABORATORY: Chemistry shows fasting blood sugar of 137 this morning. Urinalysis was performed 3 days after the previous one and it does show a positive nitrite with epithelial cells, rare bacteria and culture pending. ASSESSMENT: 1. Postoperative day #3 status post total right knee arthroplasty performed by Dr. Patricio Moon, orthopedic surgeon, because of intractable pain failing to respond to outpatient intervention and requiring surgical intervention for symptom relief. 2. Osteoarthritis, especially involving the right knee and requiring surgical intervention to help control symptoms. . 3. History of gastroesophageal reflux disease. 4. History of diabetes mellitus, type 2. 5. History of hyperlipidemia. 6. History of bipolar disorder. 7. History of anxiety with associated depression. 8. History of possible urinary tract infection with urinary urgency with nitrites positive and culture pending. Started on Levaquin initially as a low-dose , especially in the postoperative period. PLAN: Start on Levaquin 250 mg daily, awaiting culture results hopefully by in the morning. Continue to work on deep breathing and DVT prophylaxis. To discuss with family her support structures at home. May require home health to assist and is requesting a bedside commode, a walker and a shower chair. Close followup and reevaluation in the morning. [facility][id number] [facility]
[2017-04-01] MEDS ORDERED: traZODone HCL 100 MG TAB PO ONE (19:47)
[2017-04-01] MEDS ORDERED: traZODone HCL 50 MG TAB ONE (19:47)
[2017-04-01] MEDS: CYCLOBENZAPRINE HCL 10 MG TAB PO PRN (19:54)
[2017-04-01] MEDS ORDERED: BISACODYL SUPPOSITORY 10 MG PR ONE (21:00)
[2017-04-01] MEDS ORDERED: MAGNESIUM HYDROXIDE 30 ML UD PO ONE (21:00)
[2017-04-01] MEDS: TRAZODONE HCL PO SCH ×2 (21:06)
[2017-04-01] MEDS: DOCUSATE CALCIUM 240 MG CAP PO SCH (21:07)
[2017-04-01] MEDS: SIMVASTATIN 20 MG TAB PO SCH (21:08)
[2017-04-02] MEDS: HYDROcodone 10MG/APAP 325MG 1 EA TAB PO PRN ×5 (04:17→23:46)
[2017-04-02] MEDS: ESCITALOPRAM 10 MG TAB PO SCH (06:39)
[2017-04-02] MEDS: PANTOPRAZOLE SODIUM TAB 40 MG PO SCH (06:39)
[2017-04-02] MEDS: INSULIN LISPRO 100 UNITS/ML PEN SUBCU SCH ×4 (07:33→21:11)
[2017-04-02] MEDS: CELECOXIB 100 MG CAP PO SCH ×2 (07:34→17:32)
[2017-04-02] MEDS: POTASSIUM CHLORIDE 20 MEQ TAB PO SCH ×2 (07:35→17:31)
[2017-04-02] MEDS: metFORMIN HCL 500 MG TAB PO SCH ×2 (07:35→17:31)
[2017-04-02] MEDS: MAGNESIUM OXIDE 400 MG TAB PO SCH (08:06)
[2017-04-02] MEDS: SODIUM CHLORIDE 0.9% (FLUSH) 10 ML SYG IV SCH ×2 (08:06→20:15)
[2017-04-02] MEDS: carBAMazepine 200 MG TAB PO SCH ×2 (08:07→20:15)
[2017-04-02] MEDS: ALBUTEROL SULFATE 2.5 MG/3 ML VIAL NEB SCH ×3 (08:44→20:07)
[2017-04-02] MEDS: ENOXAPARIN SODIUM 30 MG/0.3 ML SYG SUBCU SCH ×2 (11:39→22:58)
--- NOTE | 2017-04-02 17:29 | PN ---
DATE: 04/02/17 SUBJECTIVE: The patient is in the bed with the CPM machine on. She has limited it to only 45 degrees today. She apparently had some discomfort last evening when he CPM was up to 90%. Some of the discomfort though has resulted when some family were trying to help her get up in the bed. Because of this, she is going a little easier but is encouraged to continue to increase steadily until she can reach the goals set for her for her rehabilitation. Appetite is pretty good. No shortness of breath. In discomfort, asking for pain medications. OBJECTIVE: Afebrile, pulse 82, blood pressure 132/82, pulse oximetry 98% on room air. LUNGS: Clear. HEART: Tones regular. ABDOMEN: Soft, no drainage at the site of the right knee incision dressing. She has been a little more active yesterday than today, but will need to get back up into her rehab pace as the day goes on. LABORATORY: Urinalysis yesterday revealed positive nitrites and the patient was started on Ceftin for at least 3 days. Urine culture since yesterday has shown no growth, but will be continued to be followed closely. ASSESSMENT: 1. Postoperative day #3 status post total right knee arthroplasty performed by Dr. Patricio Moon, orthopedic surgeon, because of intractable pain failing to respond to outpatient intervention and requiring surgical intervention for symptom relief. 2. Osteoarthritis, especially involving the right knee and requiring surgical intervention to help control symptoms. . 3. History of gastroesophageal reflux disease. 4. History of diabetes mellitus, type 2. 5. History of hyperlipidemia. 6. History of bipolar disorder. 7. History of anxiety with associated depression. 8. History of possible urinary tract infection with urinary urgency with nitrites positive and culture pending. Started on Levaquin initially as a low-dose , especially in the postoperative period. PLAN: The patient is encouraged to increase her CPM up to 90 and 95 degrees as soon as feasible and to continue with her rehabilitation on an active basis. Will write prescriptions at this time to be picked up by tomorrow for walker, bedside commode and a shower chair. Continue close observation and arrange for eventual home support when she does go home. [facility][id number] [facility]
[2017-04-02] MEDS: levoFLOXacin 500 MG TAB PO SCH (17:31)
[2017-04-02] MEDS ORDERED: traZODone HCL 100 MG TAB PO ONE (20:05)
[2017-04-02] MEDS ORDERED: traZODone HCL 50 MG TAB ONE (20:05)
[2017-04-02] MEDS: SIMVASTATIN 20 MG TAB PO SCH (20:15)
[2017-04-02] MEDS: CYCLOBENZAPRINE HCL 10 MG TAB PO PRN (20:15)
[2017-04-02] MEDS: TRAZODONE HCL PO SCH ×2 (20:15)
[2017-04-02] MEDS: DOCUSATE CALCIUM 240 MG CAP PO SCH (20:16)
[2017-04-03] MEDS: HYDROcodone 10MG/APAP 325MG 1 EA TAB PO PRN ×2 (03:55→09:08)
[2017-04-03] MEDS: ESCITALOPRAM 10 MG TAB PO SCH (06:26)
[2017-04-03] MEDS: PANTOPRAZOLE SODIUM TAB 40 MG PO SCH (06:26)
[2017-04-03] MEDS: INSULIN LISPRO 100 UNITS/ML PEN SUBCU SCH (07:54)
[2017-04-03] MEDS: metFORMIN HCL 500 MG TAB PO SCH (08:29)
[2017-04-03] MEDS: CELECOXIB 100 MG CAP PO SCH (08:30)
[2017-04-03] MEDS: POTASSIUM CHLORIDE 20 MEQ TAB PO SCH (08:30)
--- NOTE | 2017-04-03 08:54 | PN ---
DATE: 04/03/17 SUBJECTIVE: She is doing really well. She has been ambulating. OBJECTIVE: Afebrile. Vital signs stable. Wound is clean. There are no signs or symptoms of infection. ASSESSMENT: Status post total knee arthroplasty. PLAN: She will be discharged home today with physical therapy being performed in home health capacity. [facility][id number] [facility]
[2017-04-03] MEDS: SODIUM CHLORIDE 0.9% (FLUSH) 10 ML SYG IV SCH (09:07)
[2017-04-03] MEDS: carBAMazepine 200 MG TAB PO SCH (09:07)
[2017-04-03] MEDS: MAGNESIUM OXIDE 400 MG TAB PO SCH (09:07)
[2017-04-03 11:09] VITALS: BP 121/82; TEMP 98; O2SAT 96
[2017-04-03] MEDS: ENOXAPARIN SODIUM 30 MG/0.3 ML SYG SUBCU SCH (12:06)
--- NOTE | 2017-04-03 17:24 | DS ---
SUPERVISING PHYSICIAN: Zeus Cheney M.D. DISCHARGE DIAGNOSIS: 1. Postoperative day #4 status post total right knee arthroplasty performed by Dr. Patricio Moon, orthopedic surgeon, secondary to intractable pain failing to respond to outpatient intervention and requiring surgical intervention for symptom relief. 2. Osteoarthritis, especially involving the right knee and requiring surgical intervention to help control symptoms. . 3. History of gastroesophageal reflux disease. 4. History of diabetes mellitus, type 2. 5. History of hyperlipidemia. 6. History of bipolar disorder. 7. History of anxiety with associated depression. 8. Questionable urinary tract infection on admission showing positive nitrites on urine dipstick with culture results showing no growth with the patient being on Levaquin for 4 days having been stopped at time of discharge. HISTORY OF PRESENT ILLNESS: Ms. Villanueva is a 52 year-old female that has a history of pain to the right knee that had been going on for several years. She had noted that there were feelings of instability and popping that had caused her severe pain. She had had multiple injections in the knee as well as been on antiinflammatories and other conservative measures, but all had failed to provide any significant relief. She had requested Dr. Patricio Moon perform surgical intervention for a total right knee arthroplasty for symptom control. The patient was seen postoperatively. LABORATORY: Postoperative H&H was 11.7 and 36.0, blood sugars were 113 to 160. Urinalysis on admission showed trace of blood, rare bacteria with repeat urinalysis on 04/01/17 after admission showing positive nitrites, 2.0 urobilinogen, however urine color was orange and microscopic revealed zero WBC, RBCs, but greater than 50 epithelials and rare bacteria with a large amount of mucous. MICROBIOLOGY: Urine culture shows no growth at 48 hours. HOSPITAL COURSE: Ms. Villanueva was admitted on 03/29/17 and had a total right knee arthroplasty as noted above with no complications noted. Please refer to Operative note for full details from Dr. Moon. She was seen in the immediate postoperative state and was in stable condition. Had good pain control. She was able to participate with her physical therapy regimen and was felt strong enough and improved to the point that she could be discharged to continue with outpatient treatment therapy with home health physical therapy with [facility]. PLAN: Ms. Villanueva was discharged on 04/03/17 with instructions to have close clinical followup with Dr. Moon as scheduled. She was to continue with physical therapy with home health physical therapy arranged through [facility]. She was to resume her home medications as instructed and take new prescriptions that were prescribed as directed. She was told to return to the hospital should she have any concerning symptoms or any questions to call Dr. Moon's office. At discharge, she was provided pain medicines that included: 1. [place] 5/[address] Moon. 2. Samples for Xarelto 15 mg daily for 6 days. All other prescriptions were continued as prior to hospitalization. Diet at discharge was diabetic diet as tolerated. Activities were as per Physical Therapy as tolerated with a walker. She was to shower and have no tub baths. Discharge condition was stable and improved. [facility][id number] [facility]
== END 2017-04-03 15:50 | disposition home health service (06) | DRG 470 ==
LOC: AMB 05:41 → MS 08:23 → UNDOADMIN 13:15 → MS 13:15 → UNDOADMIN 03-31 08:36 → MS 03-31 08:36 → UNDODISIN 04-03 11:50
PROVIDERS: ADMIT Orthopaedic Surgery; ATTEND Nurse Practitioner Family
PROC: 0SRC0J9 Replacement of Right Knee Joint with Synthetic Substitute, Cemented, Open Approach (ICD-10-PCS; principal; 2017-03-29 09:45)
DX: M17.11 Unilateral primary osteoarthritis, right knee (principal); N39.0 Urinary tract infection, site not specified; E11.9 Type 2 diabetes mellitus without complications; F31.9 Bipolar disorder, unspecified; K21.9 Gastro-esophageal reflux disease without esophagitis; M85.80 Other specified disorders of bone density and structure, unspecified site; F41.9 Anxiety disorder, unspecified; E78.5 Hyperlipidemia, unspecified; G47.33 Obstructive sleep apnea (adult) (pediatric); Z88.0 Allergy status to penicillin; Z87.891 Personal history of nicotine dependence; Z79.84 Long term (current) use of oral hypoglycemic drugs; Z79.899 Other long term (current) drug therapy

== ENCOUNTER 2017-05-21 08:31 | Emergency (ER) | payer MEDICARE, MEDICAID ==
[2017-05-21] MEDS ORDERED: methylPREDNISolone SODIUM SUC 125 MG/2 ML VIAL IM ONE (08:54)
[2017-05-21 08:55] VITALS: BP 154/71; TEMP 97.1; O2SAT 98
--- NOTE | 2017-05-21 08:57 | ED.PDOC ---
History of Present Illness - General Chief Complaint: Skin/Abrasion/Tear Stated Complaint: Rash Time Seen by Provider: 05/21/17 08:54 Source: patient, RN notes reviewed, Vital Signs reviewed Exam Limitations: no limitations - History of Present Illness Initial Comments: Patient comes in with a rash on her arms. She believes it is due to picking up pecan limbs 2 days ago. Denies and other symptoms. No throat swelling or difficulty breathing. She has been treating with hydrogen peroxide, alcohol and Cortisone 10 cream without improvement. Timing/Duration: constant Severity: moderate Location: extremities Improving Factors: nothing Worsening Factors: nothing Associated Symptoms: itching Allergies/Adverse Reactions: Allergies Penicillins Allergy (Mild, Verified 05/25/16 19:23) Home Medications: Ambulatory Orders Carbamazepine [Tegretol-Xr] 200 mg PO BEDTIME 06/27/14 Carbamazepine [Tegretol-Xr] 400 mg PO ACBK 06/27/14 Trazodone HCl 350 mg PO BEDTIME 06/27/14 Simvastatin [Zocor] 20 mg PO BEDTIME 05/26/15 HYDROcodone 7.5MG/APAP 325MG [[place] 7.5/325] 1 tab PO .Q4H PRN 05/30/15 Potassium Chloride Tab [K-Dur] 20 meq PO BID #4 tab 01/19/16 tiZANidine [Zanaflex] 4 mg PO TID PRN #30 tab 07/18/16 Calcium Citrate-Vitamin D [Calcium Citrate + D3 Max 315-250 mg-Unit] 1 tab PO BEDTIME 03/28/17 Cyclobenzaprine HCl [Flexeril] 10 mg PO PRN PRN MDD 30 MG / DAY 03/28/17 Eletriptan Hydrobromide [Relpax] 20 mg PO PRN PRN 03/28/17 Escitalopram Oxalate [Lexapro] 20 mg PO DAILY@0700 03/28/17 Metformin HCl 1,000 mg PO BID 03/28/17 Review of Systems - Review of Systems Constitutional: States: no symptoms reported EENTM: States: throat pain, throat swelling Respiratory: States: no symptoms reported. Denies: short of breath Cardiology: States: no symptoms reported Skin: States: see HPI Neurological: States: no symptoms reported All other Systems: No Change from Baseline Past Medical History (General) - Patient Medical History Hx Seizures: No Hx Stroke: No Hx Asthma: No Hx of COPD: No Hx Cardiac Disorders: Yes - [place] in her 20's Hx Congestive Heart Failure: No Hx Pacemaker: No Hx Hypertension: No Hx Diabetes: Yes Hx Gastroesophageal Reflux: No Hx MRSA: No Surgical History: cholecystectomy, Hysterectomy - Vaccination History Hx Tetanus, Diphtheria Vaccination: No Hx Influenza Vaccination: Yes - 2017 Hx Pneumococcal Vaccination: No - Social History Hx Tobacco Use: No Hx Alcohol Use: No Hx Substance Use: No Hx Substance Use Treatment: No Hx Depression: Yes Hx Physical Abuse: No Hx Emotional Abuse: No - Female History Patient : No Family Medical History - Family History Mother Family History: No Known Living Status: Physical Exam - Physical Exam General Appearance: Alert, Comfortable, No apparent distress, Well Developed, Well Groomed, Well Hydrated, Well Nourished Neck: supple, normal inspection Cardiovascular/Chest: regular rate, rhythm, no gallop, no JVD, no murmur Respiratory: lungs clear, normal breath sounds, no respiratory distress, no accessory muscle use Extremity: normal range of motion, non-tender, normal inspection Neurologic: alert, normal mood/affect, oriented x 3 Skin Exam: warm/dry, normal color Skin Problem Location: upper extremities Skin Character: papules, urticarial Comments: Vital Signs 05/21/17 08:40 Temperature 97.1 F L Pulse Rate [ 73 Left Radial] Respiratory 18 Rate Blood Pressure 154/71 [Left Arm] O2 Sat by Pulse 98 Oximetry Progress - Progress Progress: 05/21/17 08:58 Will give Solu-Medrol 125mg IM Con't Cortisone and add Benadryl as needed. Departure - Departure Clinical Impression: Contact dermatitis Qualifiers: Contact dermatitis type: allergic Contact dermatitis trigger: other trigger Qualified Code(s): L23.89 - Allergic contact dermatitis due to other agents; L23.8 - Allergic contact dermatitis due to other agents Time of Disposition: 08:58 Disposition: Discharge to Home or Self Care Condition: Good Departure Forms: ED Discharge - Pt. Copy, Patient Portal Self Enrollment Instructions: DI for Contact Dermatitis Diet: resume usual diet Activity: increase activity as tolerated Referrals: Zeus Cheney MD [Primary Care Provider] - 1-2 Weeks Home Medications: Ambulatory Orders Carbamazepine [Tegretol-Xr] 200 mg PO BEDTIME 06/27/14 Carbamazepine [Tegretol-Xr] 400 mg PO ACBK 06/27/14 Trazodone HCl 350 mg PO BEDTIME 06/27/14 Simvastatin [Zocor] 20 mg PO BEDTIME 05/26/15 HYDROcodone 7.5MG/APAP 325MG [[place] 7.5/325] 1 tab PO .Q4H PRN 05/30/15 Potassium Chloride Tab [K-Dur] 20 meq PO BID #4 tab 01/19/16 tiZANidine [Zanaflex] 4 mg PO TID PRN #30 tab 07/18/16 Calcium Citrate-Vitamin D [Calcium Citrate + D3 Max 315-250 mg-Unit] 1 tab PO BEDTIME 03/28/17 Cyclobenzaprine HCl [Flexeril] 10 mg PO PRN PRN MDD 30 MG / DAY 03/28/17 Eletriptan Hydrobromide [Relpax] 20 mg PO PRN PRN 03/28/17 Escitalopram Oxalate [Lexapro] 20 mg PO DAILY@0700 03/28/17 Metformin HCl 1,000 mg PO BID 03/28/17
== END 2017-05-21 09:15 | disposition home or self-care (01) ==
LOC: ER 08:31
DX: L23.89 Allergic contact dermatitis due to other agents (principal); I25.2 Old myocardial infarction; E11.9 Type 2 diabetes mellitus without complications; Z88.0 Allergy status to penicillin; Z79.899 Other long term (current) drug therapy

== ENCOUNTER → 2017-05-31 | Outpatient (CLI) | payer MEDICARE, MEDICAID | END | disposition home or self-care (01) | LOC: GMAM 14:47 | PROVIDERS: ATTEND Family Medicine | DX: D64.9 Anemia, unspecified (principal) ==

== ENCOUNTER → 2017-06-12 | Outpatient (CLI) | payer MEDICARE, MEDICAID ==
--- NOTE | 2017-06-12 09:15 | CT ---
EXAM DESCRIPTION: Abdomen/Pelvis w/Contrast CLINICAL HISTORY: GROSS HEMATURIA COMPARISON: May 30, 2015. TECHNIQUE: Postcontrast multidetector CT imaging of the abdomen and pelvis was performed. Multiplanar reconstructions were generated. This exam was performed according to our departmental dose-optimization program which includes automated exposure control, adjustment of the mA and/or kV according to patient size and/or use of iterative reconstruction technique. FINDINGS: Lung bases: Patchy airspace disease is seen within the medial basilar segments of the right lower lobe. Liver: Mild diffuse fatty infiltration of the liver is suspected. No intrahepatic ductal dilatation. No aggressive liver lesions. Gallbladder and biliary system: Nonvisualized suggesting cholecystectomy. No significant biliary ductal dilatation is present. Pancreas: Unremarkable. Spleen: Unremarkable. Adrenal glands: Normal Kidneys: Symmetric renal cortical enhancement is present. Symmetric excretion of contrast. No aggressive renal lesions. No hydronephrosis. Bladder: No abnormal bladder mucosal enhancement. Gastrointestinal: No gastrointestinal obstruction or inflammation is present. Pelvic organs: Reproductive organs not visualized. No adnexal mass or free fluid collection. Other: No mesenteric or retroperitoneal lymphadenopathy is present. No peritoneal implants. Abdominal wall is intact. No aggressive lytic or blastic osseous lesions are present . Dorsal column spinal stimulator hardware. IMPRESSION: No CT findings explain the patient's presenting symptoms of gross hematuria. Patchy airspace disease within the medial aspect of the right lower lobe. Correlate for clinical symptoms of developing pneumonia. This is a good location for aspiration. Electronically signed by: Manolo Macedo MD 06/12/2017 9:14 AM [employer]
== END | disposition home or self-care (01) ==
LOC: CT 10:48
PROVIDERS: ATTEND Urology
DX: R31.0 Gross hematuria (principal)

== ENCOUNTER 2017-06-25 13:05 | Emergency (ER) | payer MEDICARE, MEDICAID ==
[2017-06-25 13:31] VITALS: TEMP 98.1; O2SAT 97
--- NOTE | 2017-06-25 13:44 | ED.PDOC ---
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 yesterday.And early this am at about 0130h had onset of squeezing type pain back of her head which radiated to both sides of her head not getting better decide to come here.No blurry vision ,no weakness,no slurred speech.[place] nauseated no vomiting Timing/Duration: other - 14 hours Severity: moderate Improving Factors: nothing Worsening Factors: nothing Associated Symptoms: other - bright lights and noise Allergies/Adverse Reactions: Allergies Penicillins Allergy (Mild, Verified 05/25/16 19:23) Home Medications: Ambulatory Orders Carbamazepine [Tegretol-Xr] 200 mg PO BEDTIME 06/27/14 Carbamazepine [Tegretol-Xr] 400 mg PO ACBK 06/27/14 Trazodone HCl 350 mg PO BEDTIME 06/27/14 Simvastatin [Zocor] 20 mg PO BEDTIME 05/26/15 HYDROcodone 7.5MG/APAP 325MG [[place] 7.5/325] 1 tab PO .Q4H PRN 05/30/15 Potassium Chloride Tab [K-Dur] 20 meq PO BID #4 tab 01/19/16 tiZANidine [Zanaflex] 4 mg PO TID PRN #30 tab 07/18/16 Calcium Citrate-Vitamin D [Calcium Citrate + D3 Max 315-250 mg-Unit] 1 tab PO BEDTIME 03/28/17 Cyclobenzaprine HCl [Flexeril] 10 mg PO PRN PRN MDD 30 MG / DAY 03/28/17 Eletriptan Hydrobromide [Relpax] 20 mg PO PRN PRN 03/28/17 Escitalopram Oxalate [Lexapro] 20 mg PO DAILY@0700 03/28/17 Metformin HCl 1,000 mg PO BID 03/28/17 Review of Systems - Review of Systems Constitutional: States: no symptoms reported EENTM: States: no symptoms reported Respiratory: States: no symptoms reported Cardiology: States: no symptoms reported Gastrointestinal/Abdominal: States: no symptoms reported Musculoskeletal: States: no symptoms reported Skin: States: no symptoms reported Neurological: States: see HPI Past Medical History (General) - Patient Medical History Hx Seizures: No Hx Stroke: No Hx Asthma: No Hx of COPD: No Hx Cardiac Disorders: Yes - [place] in her 20's Hx Congestive Heart Failure: No Hx Pacemaker: No Hx Hypertension: No Hx Diabetes: Yes Hx Gastroesophageal Reflux: No Hx MRSA: No Surgical History: cholecystectomy, other - hysterectomy,btl ,lumbar spine x3, right footx3,knee - Vaccination History Hx Tetanus, Diphtheria Vaccination: No Hx Influenza Vaccination: Yes Hx Pneumococcal Vaccination: No - Social History Hx Tobacco Use: No Hx Alcohol Use: No Hx Substance Use: No Hx Substance Use Treatment: No Hx Depression: Yes Hx Physical Abuse: No Hx Emotional Abuse: No - Activities of Daily Living Patient Lives Alone: No - family Grooming Ability: Independent Eating (Feeding) Ability: Independent Toileting Ability: Independent - Female History Patient : No Family Medical History - Family History Mother Family History: No Known Living Status: Hx Family Diabetes: Yes - multiple family members Hx Family;Other: migraine headache-multiple family members Physical Exam - Physical Exam General Appearance: Alert, No apparent distress, Other - speech fluent Eye Exam: bilateral normal Ears, Nose, Throat: hearing grossly normal, normal ENT inspection, normal pharynx Neck: non-tender, supple Respiratory: lungs clear, normal breath sounds Cardiovascular/Chest: normal peripheral pulses, regular rate, rhythm, no edema, no murmur Peripheral Pulses: radial,right: 2+, radial,left: 2+ Gastrointestinal/Abdominal: non tender, soft, no organomegaly Back Exam: no CVA tenderness, no vertebral tenderness Extremity: no pedal edema, no calf tenderness Neurologic: no motor/sensory deficits, alert, normal mood/affect, oriented x 3 Skin Exam: normal color, warm/dry Lymphatic: no adenopathy Progress - Progress Progress: 06/25/17 14:03 Last Vital Signs Temp 98.1 F 06/25/17 13:27 Pulse 69 06/25/17 13:27 Resp 20 06/25/17 13:27 BP 148/73 06/25/17 13:27 Pulse Ox 97 06/25/17 13:27 Departure - Departure Clinical Impression: Migraine Qualifiers: Migraine type: unspecified Status migrainosus presence: without status migrainosus Intractability: not intractable Qualified Code(s): G43.909 - Migraine, unspecified, not intractable, without status migrainosus Time of Disposition: 15:03 Disposition: Discharge to Home or Self Care Departure Forms: ED Discharge - Pt. Copy, Patient Portal Self Enrollment Instructions: DI for Migraine, Migraine -- Adult, Migraine Headaches ( Alternative Therapy) Referrals: Zeus Cheney MD [Primary Care Provider] - 1-2 Weeks Home Medications: Ambulatory Orders Carbamazepine [Tegretol-Xr] 200 mg PO BEDTIME 06/27/14 Carbamazepine [Tegretol-Xr] 400 mg PO ACBK 06/27/14 Trazodone HCl 350 mg PO BEDTIME 06/27/14 Simvastatin [Zocor] 20 mg PO BEDTIME 05/26/15 HYDROcodone 7.5MG/APAP 325MG [[place] 7.5/325] 1 tab PO .Q4H PRN 05/30/15 Potassium Chloride Tab [K-Dur] 20 meq PO BID #4 tab 01/19/16 tiZANidine [Zanaflex] 4 mg PO TID PRN #30 tab 07/18/16 Calcium Citrate-Vitamin D [Calcium Citrate + D3 Max 315-250 mg-Unit] 1 tab PO BEDTIME 03/28/17 Cyclobenzaprine HCl [Flexeril] 10 mg PO PRN PRN MDD 30 MG / DAY 03/28/17 Eletriptan Hydrobromide [Relpax] 20 mg PO PRN PRN 03/28/17 Escitalopram Oxalate [Lexapro] 20 mg PO DAILY@0700 03/28/17 Metformin HCl 1,000 mg PO BID 03/28/17 Additional Instructions: Follow up with primary md 06/26/2017 call for appointment if needed
[2017-06-25] MEDS ORDERED: PROMETHAZINE HCL INJ 25 MG/ML VIAL IM ONE (14:02)
[2017-06-25] MEDS ORDERED: BUTORPHANOL TARTRATE 2 MG/ML VIAL IM ONE (14:02)
[2017-06-25] MEDS ORDERED: KETOROLAC TROMETHAMINE INJ 30 MG/ML VIAL IM ONE (15:15)
[2017-06-25] MEDS ORDERED: ORPHENADRINE CITRATE 30 MG/ML AMP IM ONE (15:15)
[2017-06-25] MEDS ORDERED: HYDROcodone 7.5MG/APAP 325MG 1 EA TAB PO ONE (15:15)
[2017-06-25 15:39] VITALS: BP 153/78
== END 2017-06-25 15:51 | disposition home or self-care (01) ==
LOC: ER 13:05
DX: G43.909 Migraine, unspecified, not intractable, without status migrainosus (principal); Z88.0 Allergy status to penicillin; Z79.899 Other long term (current) drug therapy; I25.2 Old myocardial infarction; E11.9 Type 2 diabetes mellitus without complications
CPT/HCPCS: J0595; J1885; J2360; J2550

== ENCOUNTER → 2017-07-06 | Outpatient (CLI) | payer MEDICARE, MEDICAID | END | disposition home or self-care (01) | LOC: RESP 12:52 | PROVIDERS: ATTEND Orthopaedic Surgery | DX: Z01.818 Encounter for other preprocedural examination (principal) ==

== ENCOUNTER 2017-07-12 05:48 | Day surgery (SDC) | payer MEDICARE, MEDICAID ==
[2017-07-12] MEDS ORDERED: LACTATED RINGERS 1,000 ML ONE (05:52)
[2017-07-12] MEDS ORDERED: HYDROmorphone HCL INJ 2 MG/ML VIAL ONE (09:19)
[2017-07-12] MEDS ORDERED: PROPOFOL 200 MG/20 ML VIAL IV ONE (10:00)
[2017-07-12] MEDS ORDERED: LIDOCAINE 1% 10 ML VIAL INJ ONE (10:00)
[2017-07-12] MEDS ORDERED: HYDROcodone 5MG/APAP 325MG 1 EA TAB ONE (10:03)
[2017-07-12 10:21] VITALS: BP 161/99; TEMP 97.6; O2SAT 100
--- NOTE | 2017-07-20 11:33 | OP ---
DATE OF PROCEDURE: 07/12/17 PREOPERATIVE DIAGNOSIS: 1. Arthrofibrosis. POSTOPERATIVE DIAGNOSIS: 1. Arthrofibrosis. PROCEDURE: 1. Manipulation under anesthesia. SURGEON: Patricio Moon MD. SHEET ROCK APPLIER: Christiano Piña CST, SA-C. ANESTHESIA: Conscious sedation. COMPLICATIONS: None. FINDINGS: Preoperative range of motion with flexion to about 95 degrees, postoperative range of motion with flexion to about 115 to 120 degrees. INDICATION: Ms. Villanueva has a history of total knee arthroplasty. Unfortunately , Ms. Villanueva developed some stiffness in the knee. After discussing with her the stiffness and the need for aggressive therapy and range of motion, she and I discussed the risks, benefits and alternatives to manipulative therapy. After discussing the risks, benefits and alternatives to that, she did give informed consent for that. PROCEDURE: The patient was brought to the Operating Room and placed in supine position. Conscious sedation was administered and the patient's knee was subsequently hyperflexed. Following that, images were taken to ensure no acute complication of the knee. The patient was then awoken from anesthesia and taken to the Day Surgery Unit. POSTOPERATIVE INSTRUCTIONS: She will be weight-bearing as tolerated and will begin immediate physical therapy about five days a week. We will see her back again in about ten days. [facility][id number] [facility]
== END 2017-07-12 10:33 | disposition home or self-care (01) ==
LOC: AMB 05:48
PROVIDERS: ATTEND Orthopaedic Surgery
DX: M24.661 Ankylosis, right knee (principal); E11.9 Type 2 diabetes mellitus without complications; G47.30 Sleep apnea, unspecified; Z96.651 Presence of right artificial knee joint; Z88.0 Allergy status to penicillin; Z79.84 Long term (current) use of oral hypoglycemic drugs; Z79.899 Other long term (current) drug therapy
CPT/HCPCS: 01380; 27570; 36416; 76000; 82948; J1170; J3490; J7120

== ENCOUNTER → 2017-07-20 | Outpatient (CLI) | payer MEDICARE, MEDICAID | END | disposition home or self-care (01) | LOC: GMA 10:25 | PROVIDERS: ATTEND Physician Assistant | DX: R50.9 Fever, unspecified (principal) ==

== ENCOUNTER → 2017-08-08 | Outpatient (CLI) | payer MEDICARE, MEDICAID | END | disposition home or self-care (01) | LOC: GMAM 15:40 | PROVIDERS: ATTEND Family Medicine | DX: N39.0 Urinary tract infection, site not specified (principal) ==

== ENCOUNTER → 2017-12-08 | Outpatient (CLI) | payer MEDICARE, MEDICAID | LOC: GMAM 12:47 | PROVIDERS: ATTEND Family Medicine | DX: Z79.899 Other long term (current) drug therapy (principal) ==

== ENCOUNTER → 2017-12-28 | Outpatient (CLI) | payer MEDICARE, MEDICAID | LOC: GMAM 16:31 | PROVIDERS: ATTEND Family Medicine | DX: E03.9 Hypothyroidism, unspecified (principal); R79.9 Abnormal finding of blood chemistry, unspecified; R23.3 Spontaneous ecchymoses ==

== ENCOUNTER → 2018-01-03 | Outpatient (CLI) | payer MEDICARE, MEDICAID ==
--- NOTE | 2018-01-04 08:45 | US ---
EXAM DESCRIPTION: Soft Tissue,Head/Neck CLINICAL HISTORY: 53 years, Female, NEOPLASM, SUBMANDIBULAR GLAND COMPARISON: None. FINDINGS: Sonogram of the neck was performed. In the right submandibular region, hyperechoic structure is consistent with normal submandibular salivary gland measuring 2.5 x 3 x 1.8 cm. Normal color flow within the gland. Right submandibular lymph nodes appear normal with normal echogenic mitul. Short axis dimension measurement of one node is 5 mm. Another node has a short axis dimension measurement of 7 mm. In the left submandibular region, hyperechoic structure is seen consistent with normal submandibular salivary gland which measures 3.8 x 3.3 x 1.5 cm. Normal color flow within the gland. Submandibular lymph node with normal fatty echogenic hilum is seen which is mildly prominent. The short axis dimension measures 7 mm. IMPRESSION: Normal submandibular salivary glands. Submandibular lymph nodes are within normal limits. Electronically signed by: Jay Ayoub MD 01/04/2018 8:43 AM CDT
== END ==
LOC: US 13:00
PROVIDERS: ATTEND Family Medicine
DX: D37.032 Neoplasm of uncertain behavior of the submandibular salivary glands (principal)

== ENCOUNTER → 2018-02-02 | Outpatient (CLI) | payer MEDICARE, MEDICAID | LOC: GMAM 12:06 | PROVIDERS: ATTEND Family Medicine | DX: E03.9 Hypothyroidism, unspecified (principal) ==

== ENCOUNTER → 2018-03-30 | Outpatient (CLI) | payer MEDICARE, MEDICAID | LOC: GMAM 11:09 | PROVIDERS: ATTEND Family Medicine | DX: R94.5 Abnormal results of liver function studies (principal) ==

== ENCOUNTER 2018-06-22 09:13 | Emergency (ER) | payer MEDICARE, MEDICAID ==
[2018-06-22 09:39] VITALS: TEMP 98.4; O2SAT 100
--- NOTE | 2018-06-22 09:50 | ED.PDOC ---
History of Present Illness - General Chief Complaint: Bite: Animal/Insect/Human Stated Complaint: dog bite Time Seen by Provider: 06/22/18 09:46 Source: patient Exam Limitations: no limitations - History of Present Illness Initial Comments: the patient is a 53-year-old female presenting to emergency room secondary to sustaining several lacerations while breaking up a dog fight in her house. The dogs are known to her. Authorities have been contacted. The patient has mild abrasions to the dorsal aspect of both hands. These have been cleaned. She has mild abrasions as well as 2 lacerations to the inner aspect of her left lower leg which she was obviously bitten. The first laceration is approximately two thirds of an inch in length and the second one just posterior to it is approximately a half inch in length. The patient is neurovascularly intact distally. She is ambulating. No evidence of any broken bones or nerve damage. No evidence of any vascular compromise. These wounds were irrigated with approximately 200 cc of sterile saline. Benzoin was applied and Steri- Strips were used for closure of these 2 wounds as they were low tension wounds. No other injuries. Timing/Duration: momentarily Severity: mild Improving Factors: nothing Worsening Factors: nothing Associated Symptoms: denies symptoms Allergies/Adverse Reactions: Allergies Penicillins Allergy (Mild, Verified 05/25/16 19:23) Home Medications: Ambulatory Orders Carbamazepine [Tegretol-Xr] 200 mg PO BEDTIME 06/27/14 Carbamazepine [Tegretol-Xr] 400 mg PO ACBK 06/27/14 Trazodone HCl 350 mg PO BEDTIME 06/27/14 Simvastatin [Zocor] 20 mg PO BEDTIME 05/26/15 HYDROcodone 7.5MG/APAP 325MG [Mccall 7.5/325] 1 tab PO .Q4H PRN 05/30/15 tiZANidine [Zanaflex] 4 mg PO TID PRN #30 tab 07/18/16 Calcium Citrate-Vitamin D [Calcium Citrate + D3 Max 315-250 mg-Unit] 1 tab PO BEDTIME 03/28/17 Cyclobenzaprine HCl [Flexeril] 10 mg PO PRN PRN MDD 30 MG / DAY 03/28/17 Eletriptan Hydrobromide [Relpax] 20 mg PO PRN PRN 03/28/17 Escitalopram Oxalate [Lexapro] 20 mg PO DAILY@0700 03/28/17 Metformin HCl 1,000 mg PO BID 03/28/17 Ciprofloxacin [Cipro] 500 mg PO BID #10 tab 06/22/18 Clindamycin HCl 300 mg PO Q8H #15 cap 06/22/18 Review of Systems - Review of Systems Constitutional: States: no symptoms reported EENTM: States: no symptoms reported Respiratory: States: no symptoms reported Cardiology: States: no symptoms reported Gastrointestinal/Abdominal: States: no symptoms reported Genitourinary: States: no symptoms reported Musculoskeletal: States: see HPI Skin: States: see HPI Neurological: States: no symptoms reported Endocrine: States: no symptoms reported All other Systems: No Change from Baseline Past Medical History (General) - Patient Medical History Hx Seizures: No Hx Stroke: No Hx Asthma: No Hx of COPD: No Hx Cardiac Disorders: Yes - [place] in her 20's Hx Congestive Heart Failure: No Hx Pacemaker: No Hx Hypertension: Yes Hx Diabetes: Yes - FSBS Hx Gastroesophageal Reflux: No Hx MRSA: No Surgical History: Hysterectomy - Vaccination History Hx Tetanus, Diphtheria Vaccination: Yes Hx Influenza Vaccination: Yes Hx Pneumococcal Vaccination: No - Social History Hx Tobacco Use: Yes Hx Alcohol Use: No Hx Substance Use: No Hx Substance Use Treatment: No Hx Depression: Yes Hx Physical Abuse: No Hx Emotional Abuse: No - Female History Patient : No Family Medical History - Family History Mother Family History: No Known Living Status: Hx Family Diabetes: Yes - multiple family members Hx Family;Other: migraine headache-multiple family members Physical Exam - Physical Exam General Appearance: Alert, Comfortable, No apparent distress Eye Exam: bilateral normal Ears, Nose, Throat: hearing grossly normal, normal pharynx Neck: non-tender Respiratory: no respiratory distress, no accessory muscle use Cardiovascular/Chest: normal peripheral pulses, no edema Peripheral Pulses: radial,right: 2+, radial,left: 2+, dorsalis pedis,right: 2+, dorsalis pedis,left: 2+, posterior tibialis,right: 2+, posterior tibialis,left: 2+ Gastrointestinal/Abdominal: soft - obese Rectal Exam: deferred Extremity: normal range of motion, no pedal edema, normal capillary refill, other - see history of present illness Neurologic: air quality instrument specialist II-XII nml as tested, no motor/sensory deficits - grossly intact , alert, normal mood/affect, oriented x 3 Skin Exam: normal color Comments: lacerations as above Vital Signs - 24 hr 06/22/18 09:27 Temperature 98.4 F Pulse Rate [ 88 Left Brachial] Respiratory 20 Rate Blood Pressure 120/84 [Left Arm] O2 Sat by Pulse 100 Oximetry Progress - Progress Progress: 06/22/18 09:54 the patient is a 53-year-old female presented to emergency room secondary to a couple of lacerations to her left leg and several abrasions to her hands due to ending up being in the middle of a dog fight in her house. The patient reports she is up-to-date on her tetanus shot. 2 of the lacerations were repaired with Steri-Strips as they were low tension areas, after being irrigated. The abrasions the patient can apply triple antibiotic ointment to a couple of times daily. Steri-Strips will fall off on their own over the next week. She does need to monitor for any evidence of infection. As she is penicillin allergic, she will be placed on clindamycin and ciprofloxacin for 5 days. She needs to take these with food to prevent stomach upset. ER warnings were given. Keep routine follow-up with primary care doctor otherwise. Departure - Departure Clinical Impression: Laceration, Bite wound Disposition: Discharge to Home or Self Care Condition: Fair Departure Forms: ED Discharge - Pt. Copy, Patient Portal Self Enrollment Diet: diabetic diet Activity: increase activity as tolerated Referrals: Zeus Cheney MD [Primary Care Provider] - 1-2 Weeks Prescriptions: Ciprofloxacin [Cipro] 500 mg PO BID #10 tab Clindamycin HCl 300 mg PO Q8H #15 cap Home Medications: Ambulatory Orders Carbamazepine [Tegretol-Xr] 200 mg PO BEDTIME 06/27/14 Carbamazepine [Tegretol-Xr] 400 mg PO ACBK 06/27/14 Trazodone HCl 350 mg PO BEDTIME 06/27/14 Simvastatin [Zocor] 20 mg PO BEDTIME 05/26/15 HYDROcodone 7.5MG/APAP 325MG [Mccall 7.5/325] 1 tab PO .Q4H PRN 05/30/15 tiZANidine [Zanaflex] 4 mg PO TID PRN #30 tab 07/18/16 Calcium Citrate-Vitamin D [Calcium Citrate + D3 Max 315-250 mg-Unit] 1 tab PO BEDTIME 03/28/17 Cyclobenzaprine HCl [Flexeril] 10 mg PO PRN PRN MDD 30 MG / DAY 03/28/17 Eletriptan Hydrobromide [Relpax] 20 mg PO PRN PRN 03/28/17 Escitalopram Oxalate [Lexapro] 20 mg PO DAILY@0700 03/28/17 Metformin HCl 1,000 mg PO BID 03/28/17 Ciprofloxacin [Cipro] 500 mg PO BID #10 tab 06/22/18 Clindamycin HCl 300 mg PO Q8H #15 cap 06/22/18 Additional Instructions: the patient is a 53-year-old female presented to emergency room secondary to a couple of lacerations to her left leg and several abrasions to her hands due to ending up being in the middle of a dog fight in her house. The patient reports she is up-to-date on her tetanus shot. 2 of the lacerations were repaired with Steri-Strips as they were low tension areas, after being irrigated. The abrasions the patient can apply triple antibiotic ointment to a couple of times daily. Steri-Strips will fall off on their own over the next week. She does need to monitor for any evidence of infection. As she is penicillin allergic, she will be placed on clindamycin and ciprofloxacin for 5 days. She needs to take these with food to prevent stomach upset. ER warnings were given. Keep routine follow-up with primary care doctor otherwise. hold her cholesterol medication while taking the antibiotics.
[2018-06-22 10:10] VITALS: BP 162/101
== END 2018-06-22 10:10 | disposition home or self-care (01) ==
LOC: ER 09:13
DX: S81.852A Open bite, left lower leg, initial encounter (principal); S60.572A Other superficial bite of hand of left hand, initial encounter; S60.571A Other superficial bite of hand of right hand, initial encounter; E11.9 Type 2 diabetes mellitus without complications; I25.2 Old myocardial infarction; I10 Essential (primary) hypertension; F32.9 Major depressive disorder, single episode, unspecified; W54.0XXA Bitten by dog, initial encounter; Z87.891 Personal history of nicotine dependence; Z79.899 Other long term (current) drug therapy; Z79.84 Long term (current) use of oral hypoglycemic drugs; Z88.0 Allergy status to penicillin; Y92.009 Unspecified place in unspecified non-institutional (private) residence as the place of occurrence of the external cause

== ENCOUNTER → 2018-08-16 | Outpatient (CLI) | payer MEDICARE, MEDICAID ==
--- NOTE | 2018-08-16 09:13 | RAD ---
EXAM DESCRIPTION: Knee,Left Complete CLINICAL HISTORY: 53 years Female, M25.562 TECHNIQUE: 4 views of the left knee were performed. COMPARISON: None available. FINDINGS: The visualized bones appear well mineralized. No acute fracture or dislocation. Tricompartmental joint space narrowing is noted, worse in the medial tibiofemoral compartment. There is small suprapatellar joint effusion. Lateral tilting of the patella is identified. The soft tissues appear grossly unremarkable. IMPRESSION: Tricompartmental osteoarthritis with small suprapatellar joint effusion. Electronically signed by: Camilla Sauceda MD 08/16/2018 9:12 AM [facility]
--- NOTE | 2018-08-16 09:54 | RAD ---
EXAM DESCRIPTION: Pelvis CLINICAL HISTORY: 53 years Female, M25.552 COMPARISON: Radiographs of the pelvis dated 03/27/2017. TECHNIQUE: AP radiograph of the pelvis was performed. FINDINGS: The pelvic ring appears grossly intact on this single AP radiograph. No acute fracture or dislocation. Bilateral sacroiliac joints appear normal. Bilateral hip joints appear normal. The visualized lumbo-sacral spine demonstrates mild degenerative changes. Changes of osteitis pubis are identified. IMPRESSION: Single AP radiograph of the pelvis demonstrates grossly intact pelvic ring. Osteitis pubis is noted. Electronically signed by: Camilla Sauceda MD 08/16/2018 9:52 AM [facility]
== END ==
LOC: RAD 08:24
PROVIDERS: ATTEND Orthopaedic Surgery
DX: M17.12 Unilateral primary osteoarthritis, left knee (principal); M25.462 Effusion, left knee; M25.562 Pain in left knee; M25.552 Pain in left hip

== ENCOUNTER → 2018-09-04 | Outpatient (CLI) | payer MEDICARE, MEDICAID | LOC: GMAM 14:52 | PROVIDERS: ATTEND Family Medicine | DX: E53.8 Deficiency of other specified B group vitamins (principal); E03.9 Hypothyroidism, unspecified; Z79.899 Other long term (current) drug therapy ==

== ENCOUNTER → 2018-10-11 | Outpatient (CLI) | payer MEDICARE, MEDICAID | LOC: RESP 08:16 | PROVIDERS: ATTEND Orthopaedic Surgery | DX: Z01.818 Encounter for other preprocedural examination (principal) ==

== ENCOUNTER → 2019-02-04 | Outpatient (CLI) | payer MEDICARE, MEDICAID | LOC: LAB.O 08:33 | PROVIDERS: ATTEND Orthopaedic Surgery | DX: Z01.818 Encounter for other preprocedural examination (principal) ==

== ENCOUNTER → 2019-02-20 | Day surgery (SDC) | payer MEDICARE, MEDICAID ==
--- NOTE | 2018-12-14 14:14 | HP ---
CHIEF COMPLAINT: Left knee pain. HISTORY OF PRESENT ILLNESS: Randa is a 53-year-old female with a history of pain in the left knee. She has had pain going on for several years. She has had injections, however, has failed to gain ongoing relief. She has had right total knee arthroplasty. Because of failure of conservative measures, she has requested operative intervention. After discussing the risks, benefits and alternatives to that, she has given informed consent. MEDICATIONS: 1. Duloxetine. 2. Simvastatin. 3. Tizanidine. 4. Escitalopram. 5. Dexilant. 6. Lisinopril. 7. Metformin. 8. Carbamazepine. ALLERGIES: LEVAQUIN, PENICILLIN. CODE STATUS: Full code. IMMUNIZATIONS: Up to date. FAMILY HISTORY: None pertinent to today's complaint. SOCIAL HISTORY: The patient does not drink, smoke or use any illicit drugs. REVIEW OF SYSTEMS: Negative except as indicated in the History of Present Illness. PHYSICAL EXAMINATION: VITAL SIGNS: Blood pressure 147/79. Pulse 73. Height 5'4". Weight 189 pounds. MENTAL STATUS: The patient is awake, alert, and is able to give a good history and participate in the physical. The patient is oriented to person, place and time. SKIN: Normal tone and turgor. HEENT: Normocephalic, atraumatic. Pupils equal, round and reactive. Mucosal membranes are moist. NECK: Normal range of motion. No thyromegaly, no lymphadenopathy. CHEST: Normal respiratory excursion. CARDIAC: Regular rate and rhythm. No murmurs, rubs or gallops. MUSCULOSKELETAL: She has full range of motion of the upper extremities without pain. She has intact sensation and they are warm and well perfused. Strength is 5/5 in all range and 5/5 motorcycle maker strength. She has no deformities and no malalignment. The right lower extremity shows full range of motion in the hip. She has full extension of the knee and flexion is to about 120 degrees. She has no varus/valgus or anterior/posterior laxity. The left lower extremity shows full range of motion of the hip. She has pain with range of motion of the knee and severe pain to palpation. She has crepitus throughout her range of motion and maintains near full extension to flexion of about 115 degrees. She has no gross overall malalignment. IMAGING: X-rays show advanced arthritis. ASSESSMENT: 1. Arthritis. PLAN: The plan at this point is for total knee arthroplasty. We have discussed the risks, benefits, and alternatives to that and the patient has given informed consent. #[id number] [facility]
== END ==
LOC: AMB 05:46
PROVIDERS: ATTEND Orthopaedic Surgery
DX: M17.12 Unilateral primary osteoarthritis, left knee (principal); Z88.0 Allergy status to penicillin; Z88.8 Allergy status to other drugs, medicaments and biological substances; Z53.8 Procedure and treatment not carried out for other reasons; Z79.84 Long term (current) use of oral hypoglycemic drugs; Z79.899 Other long term (current) drug therapy

== ENCOUNTER → 2019-03-18 | Outpatient (CLI) | payer MEDICARE, MEDICAID | LOC: LAB.O 08:00 | PROVIDERS: ATTEND Orthopaedic Surgery | DX: Z01.818 Encounter for other preprocedural examination (principal) ==

== ENCOUNTER → 2019-04-02 | Outpatient (CLI) | payer MEDICARE, MEDICAID | LOC: LAB.O 08:01 | PROVIDERS: ATTEND Orthopaedic Surgery | DX: Z01.818 Encounter for other preprocedural examination (principal) ==

== ENCOUNTER 2019-04-03 05:25 | Inpatient (IN) | payer MEDICARE, MEDICAID ==
--- NOTE | 2019-03-29 09:52 | HP ---
CHIEF COMPLAINT: Left knee pain. HISTORY OF PRESENT ILLNESS: Randa is a 53-year-old female with a history of pain in the left knee. She has had pain going on for several years. She has had injections, however, those have failed to give her ongoing relief. She has had right total knee arthroplasty and is requesting left total knee arthroplasty. Her pain is continual in nature and is now reaching to a 10. It keeps her at night. She has had difficulty with activities because of this. After discussing all the risks, benefits and alternatives and answering her questions, she has given informed consent for total knee arthroplasty. MEDICATIONS: 1. Duloxetine. 2. Simvastatin. 3. Tizanidine. 4. Escitalopram. 5. Dexilant. 6. Lisinopril. 7. Metformin. 8. Carbamazepine. ALLERGIES: LEVAQUIN, PENICILLIN. CODE STATUS: Full code. IMMUNIZATIONS: Up to date. SOCIAL HISTORY: The patient does not drink, smoke or use any illicit drugs. FAMILY HISTORY: None pertinent to today's complaint. REVIEW OF SYSTEMS: Negative except as indicated in the History of Present Illness. PHYSICAL EXAMINATION: VITAL SIGNS: Blood pressure 140/93. Pulse 76. Height 5'3". Weight 178 pounds. MENTAL STATUS: The patient is awake, alert, and is able to give a good history and participate in the physical. The patient is oriented to person, place and time. SKIN: Normal tone and turgor. HEENT: Normocephalic, atraumatic. Pupils equal, round and reactive. Mucosal membranes are moist. NECK: Normal range of motion. No thyromegaly, no lymphadenopathy. CHEST: Normal respiratory excursion. CARDIAC: Regular rate and rhythm. No murmurs, rubs or gallops. MUSCULOSKELETAL: Bilateral upper extremities show no significant pain with range of motion. She has intact sensation. They are warm and well perfused. She has no deformity and no crepitus. Strength is 5/5. The right lower extremity shows no pain with range of motion of the hip. She has no significant pain with range of motion of the knee. She has a well-healed wound anteriorly. She has no deformity and no laxity. Strength is 5/5. Sensation is intact. The left lower extremity shows no pain with range of motion of the hip. Sensation is intact. It is warm and well perfused. She has no varus/valgus or anterior/posterior laxity. She has severe pain to palpation with crepitus as well. She has a moderate effusion. IMAGING: X-rays show advanced arthritis. ASSESSMENT: 1. Arthritis. PLAN: The plan at this point is for total knee arthroplasty. We have discussed the risks, benefits, and alternatives to that and the patient has given informed consent. [facility][id number] [facility]
[2019-04-03] MEDS ORDERED: SODIUM CHL 0.9% 100ML MINI-BAG 100 ML IVPB ONE (05:59)
[2019-04-03] MEDS ORDERED: VANCOMYCIN HCL INJ 1,000 MG VIAL IVPB ONE ×4 (06:00→19:18)
[2019-04-03] MEDS ORDERED: ceFAZolin SODIUM 1 GM VIAL ONE ×2 (06:00→06:29)
[2019-04-03] MEDS ORDERED: LACTATED RINGERS 1,000 ML ONE (06:00)
[2019-04-03] MEDS ORDERED: SODIUM CHLORIDE 0.9% 250ML 250 ML ONE ×3 (06:01→19:17)
[2019-04-03] MEDS ORDERED: SODIUM CHLORIDE 0.9% 100ML 100 ML IVPB ONE (06:01)
[2019-04-03] MEDS ORDERED: TRANEXAMIC ACID 1,000 MG/10 ML VIAL ONE (06:10)
[2019-04-03] MEDS ORDERED: KETAMINE HCL 50 MG/ML SYG IV ONE (06:24)
[2019-04-03] MEDS ORDERED: fentaNYL CITRATE INJ 50 MCG/ML AMP ONE (06:24)
[2019-04-03] MEDS ORDERED: MORPHINE SULFATE *EPIDURAL* 0.5 MG/ML VIAL ONE (06:24)
[2019-04-03] MEDS ORDERED: ACETAMINOPHEN IV 1000MG 100 ML ONE (06:24)
[2019-04-03] MEDS ORDERED: MIDAZOLAM INJ 2 MG/2 ML VIAL ONE (06:25)
[2019-04-03] MEDS ORDERED: BUPIVACAINE 0.5% 30 ML VIAL INJ ONE (06:29)
[2019-04-03] MEDS ORDERED: BUPIVACAINE LIPOSOME 13.3 MG/ML VIAL INJ ONE ×2 (06:29→06:34)
[2019-04-03] MEDS: TRANEXAMIC ACID 1,000 MG/10 ML VIAL ONE ×2 (06:36→07:10)
[2019-04-03] MEDS ORDERED: SODIUM CHLORIDE 0.9% 50 ML VIAL ONE ×2 (07:48→08:06)
[2019-04-03] MEDS ORDERED: ELECTROLYTE-A 1,000 ML IVS ONE ×2 (07:48→08:52)
--- NOTE | 2019-04-03 09:29 | RAD ---
PROVIDED CLINICAL HISTORY/REASON FOR EXAM: TKA Findings/impression: One intraoperative fluoroscopic image of a knee arthroplasty. Dose: Not documented Time: One second Electronically signed by: Catracho Ho MD 04/03/2019 9:28 AM CDT
[2019-04-03] MEDS ORDERED: LACTATED RINGERS 1,000 ML IVS ONE (09:30)
[2019-04-03] MEDS ORDERED: ONDANSETRON INJ 4 MG/2 ML VIAL IV PRN (09:50)
[2019-04-03] MEDS ORDERED: MAGNESIUM HYDROXIDE 30 ML UD PO PRN (09:50)
[2019-04-03] MEDS ORDERED: TRANEXAMIC ACID INJ 1,000 MG in SODIUM CHLORIDE 0.9% 100ML 100 ML IVPB ONE (09:50)
[2019-04-03] MEDS ORDERED: ACETAMINOPHEN 325 MG TAB PO PRN (09:50)
[2019-04-03] MEDS ORDERED: BISACODYL SUPPOSITORY 10 MG PR PRN (09:50)
[2019-04-03] MEDS ORDERED: ZOLPIDEM TARTRATE 5 MG TAB PO PRN (09:50)
[2019-04-03] MEDS ORDERED: PROMETHAZINE HCL INJ 25 MG in SODIUM CHLORIDE 0.9% 50ML 50 ML IVPB PRN (09:50)
[2019-04-03] MEDS ORDERED: BENZOCAINE-MENTH LOZ (CEPACOL) 1 EA LOZ MT PRN (09:50)
[2019-04-03] MEDS ORDERED: SODIUM CHLORIDE 0.9% (FLUSH) 10 ML SYG IV PRN (09:50)
[2019-04-03] MEDS ORDERED: DEX 5% W/NACL 0.45% 1000ML 1,000 ML IVS PRN (09:50)
[2019-04-03] MEDS ORDERED: ALUMINUM & MAGNESIUM HYDROXIDE 30 ML UD PO PRN (09:50)
[2019-04-03] MEDS ORDERED: ACETAMINOPHEN 500 MG TAB PO PRN (09:50)
[2019-04-03] MEDS ORDERED: MORPHINE SULFATE INJ 10 MG/ML VIAL IM PRN (09:50)
[2019-04-03] MEDS ORDERED: PROMETHAZINE HCL INJ 12.5 MG in SODIUM CHLORIDE 0.9% 50ML 50 ML IVPB PRN (09:50)
[2019-04-03] MEDS ORDERED: NALOXONE HCL INJ 0.4 MG/ML VIAL IV PRN (09:50)
[2019-04-03] MEDS ORDERED: MORPHINE SULFATE INJ 10 MG/ML VIAL IV PRN (09:50)
[2019-04-03] MEDS ORDERED: MORPHINE PCA 1 MG/ML 100 ML BAG IVPB SCH (10:00)
--- NOTE | 2019-04-03 10:08 | RAD ---
EXAM DESCRIPTION: Knee,Left 1 or 2 Views CLINICAL HISTORY: 54 years Female, Post Op TECHNIQUE: 2 views of the left knee were performed. COMPARISON: None available. FINDINGS: Postsurgical changes consistent with recent total knee arthroplasty are noted with intact hardware. Air-fluid levels are noted in the suprapatellar joint space likely sequela of recent surgery. Subcutaneous air along the anterior aspect of distal femur also sequela of recent surgery. No acute fracture or dislocation. IMPRESSION: 1. Recent post surgical changes of left total knee arthroplasty with intact hardware. Electronically signed by: João Bangura MD 04/03/2019 10:07 AM CDT
[2019-04-03] MEDS: IV SET AND CAP CHANGE INJ INJ SCH (11:34)
[2019-04-03] MEDS ORDERED: raNITIdine HCL INJ 25 MG/ML VIAL IV ONE (12:00)
[2019-04-03] MEDS ORDERED: SODIUM CHLORIDE 0.9% 50 ML VIAL INJ ONE (12:00)
[2019-04-03] MEDS ORDERED: DEXAMETHASONE INJ 10 MG/ML VIAL IV ONE (12:00)
[2019-04-03] MEDS ORDERED: ePHEDrine SULF 50 MG/ML IV ONE (12:00)
[2019-04-03] MEDS ORDERED: LIDOCAINE 1% 10 ML VIAL INJ ONE (12:00)
[2019-04-03] MEDS ORDERED: PROPOFOL 200 MG/20 ML VIAL IV ONE (12:00)
--- NOTE | 2019-04-03 14:21 | CONS ---
SUPERVISING PHYSICIAN: Channing Flynn MD CHIEF COMPLAINT: Medical management. HISTORY OF PRESENT ILLNESS: This is a 54-year-old female who has some significant left knee osteoarthritis which failed outpatient conservative measures. Therefore, she underwent a left total knee arthroplasty today. There were no intraoperative complications. She is currently sitting up in bed and is awake, alert and oriented. She has complaints of pain, but states her pain is controlled with the CABLE INSTALLATION MANAGER. PAST MEDICAL HISTORY: 1. Hyperlipidemia. 2. Hypertension. 3. Gastroesophageal reflux disease. 4. Osteopenia. 5. Type 2 diabetes mellitus. 6. Bipolar. PAST SURGICAL HISTORY: 1. Cholecystectomy. 2. Hysterectomy. 3. Right total knee arthroplasty. 4. Tubal ligation. 5. Lumbar spine surgery. 6. Right foot ORIF. MEDICATIONS: Please see the medication reconciliation record. ALLERGIES: PENICILLIN, LEVAQUIN. FAMILY HISTORY: Father and mother both had type 2 diabetes mellitus. Brother with rheumatoid arthritis. Two sisters are healthy. She has two sons, one has type 1 diabetes and daughter who is healthy. SOCIAL HISTORY: The patient has a distant history of smoking and quit in 1989. No alcohol, no illicit drugs. REVIEW OF SYSTEMS: Other than the left knee pain, she does not have any complaints at this time. PHYSICAL EXAMINATION: VITAL SIGNS: Blood pressure 129/80. Heart rate 70. Respiratory rate 16. Temperature 98.0. Oxygen saturation 95%. GENERAL: Ms. Villanueva is a 54 over female who is in no active distress currently. NEUROLOGIC: The patient is alert and oriented. LUNGS: Clear to auscultation bilaterally. CARDIOVASCULAR: Regular rate and rhythm. Normal S1, S2. ABDOMEN: Soft. Positive bowel sounds. GENITOURINARY: Deferred. EXTREMITIES: Lower extremities with no edema. Pulses 2+. Capillary refill is less than 2 seconds. Left knee is wrapped in an Jarvis as well as the ice machine is running at this time. ASSESSMENT: 1. Left knee osteoarthritis status post left total knee arthroplasty, postoperative day #0. 2. Hypertension. 3. Type 2 diabetes mellitus. 4. Hyperlipidemia. PLAN: At this time, the patient will be admitted to the hospital with postoperative orders by Dr. Moon for physical therapy as well as pain control. She will have DVT prophylaxis with Lovenox 30 mg q.12h. We will transition to Xarelto eventually. We will evaluate how she progresses and what rehab needs she will need while she is here. #[id number] [facility]
[2019-04-03] MEDS ORDERED: ceFAZolin SODIUM 2 GRAMS PREMI 50 ML IVPB ONE ×2 (15:58→19:17)
[2019-04-03] MEDS: ceFAZolin SODIUM 2 GRAMS PREMI 2 GM in PREMIX BAG 1 BAG IVPB SCH ×2 (16:01→23:56)
[2019-04-03] MEDS: HYDROcodone 5MG/APAP 325MG 1 EA TAB PO PRN ×2 (16:10→21:39)
[2019-04-03] MEDS: CYCLOBENZAPRINE HCL 10 MG TAB PO PRN (16:11)
[2019-04-03] MEDS: CELECOXIB 100 MG CAP PO SCH (17:12)
[2019-04-03] MEDS: VANCOMYCIN HCL INJ 1,000 MG in SODIUM CHLORIDE 0.9% 250ML 250 ML IVPB SCH (17:13)
[2019-04-03] MEDS ORDERED: ENOXAPARIN SODIUM 30 MG/0.3 ML SYG SUBCU ONE (19:17)
[2019-04-03] MEDS: DOCUSATE CALCIUM 240 MG CAP PO SCH (20:35)
--- NOTE | 2019-04-03 20:54 | PN ---
DATE: 04/03/19 POSTOPERATIVE CHECK SUBJECTIVE: She is doing well and not having any pain. OBJECTIVE: She is afebrile. Vital signs are stable. Dressing is clean, dry and intact. ASSESSMENT: 1. Status post total knee arthroplasty. PLAN: The plan at this point is for her to begin weightbearing as tolerated on postoperative day 1. #[id number] [facility]
--- NOTE | 2019-04-03 21:06 | OP ---
DATE OF PROCEDURE: 04/03/19 PREOPERATIVE DIAGNOSIS: 1. Osteoarthritis of the left knee. POSTOPERATIVE DIAGNOSIS: 1. Osteoarthritis of the left knee. PROCEDURE: 1. Left total knee arthroplasty. SURGEON: Patricio Moon M.D. MANAGER HUMAN RESOURCES: Christiano Piña CST, SA-C. ANESTHESIA: General anesthesia. COMPLICATIONS: None. FINDINGS: Severe osteoarthritis of the knee. INDICATION FOR PROCEDURE: Ms. Villanueva has a history of pain associated with arthritis of the knee. She has had contralateral total knee arthroplasty. Because of the ongoing discomfort and failure of conservative measures she has requested operative intervention. After discussing the risks, benefits, and alternatives to that she has given informed consent for that. PROCEDURE: The patient was brought to the Operating Room and placed in supine position. General anesthesia was induced and the patient's leg was sterilely prepped and draped. Following prepping and draping, the distal femur was exposed and using an intramedullary guide, the distal femoral cut was made. The appropriate sized cutting block was measured, pinned into place, and the anterior, posterior, and chamfer cuts were made. The ACL was transected and the tibia was subluxed. Both the medial and lateral menisci were removed. An intramedullary guide was used to make the proximal tibial cut. The appropriate sized base plate was placed and a trial polyethylene was placed. The trial femur was placed, the knee was reduced, and the knee was taken through a range of motion. The knee was stable in anterior, posterior, varus and valgus stress. The patella tracked anatomically without evidence of subluxation or dislocation. After trialing, the trial components were removed and the bony surfaces were thoroughly irrigated with saline. Following irrigation, the surfaces were dried and the final components were cemented into place. The excess cement was removed and the remaining cement was allowed to cure. The knee was again taken through a range of motion to confirm stability. The wound was then irrigated with saline and closure was performed using PDS to approximate the arthrotomy followed by closure of the subcutaneous tissues with a combination of running and interrupted Monocryl sutures. Sterile dressing was placed. The patient was awoken from anesthesia and taken to Recovery. POSTOPERATIVE INSTRUCTIONS: She will be weight-bearing as tolerated on postoperative day 1. #[id number] [facility]
[2019-04-03] MEDS: ENOXAPARIN SODIUM 30 MG/0.3 ML SYG SUBCU SCH (22:05)
[2019-04-03] MEDS: HYDROcodone 7.5MG/APAP 325MG 1 EA TAB PO PRN (22:28)
[2019-04-04] MEDS: HYDROcodone 7.5MG/APAP 325MG 1 EA TAB PO PRN ×4 (02:28→21:30)
[2019-04-04] MEDS: CYCLOBENZAPRINE HCL 10 MG TAB PO PRN ×3 (02:29→21:31)
[2019-04-04] MEDS: VANCOMYCIN HCL INJ 1,000 MG in SODIUM CHLORIDE 0.9% 250ML 250 ML IVPB SCH (05:43)
[2019-04-04] MEDS ORDERED: ceFAZolin SODIUM 2 GRAMS PREMI 50 ML IVPB ONE (07:53)
--- NOTE | 2019-04-04 08:05 | PN ---
DATE: 04/04/19 SUBJECTIVE: Ms. Villanueva is doing well. She is having breakfast and her pain is well controlled. OBJECTIVE: Afebrile. Vital signs stable. Dressing is clean, dry and intact. ASSESSMENT: Status post total knee arthroplasty. PLAN: The plan is to be weightbearing as tolerated today. #[id number] [facility]
[2019-04-04] MEDS: MAGNESIUM OXIDE 400 MG TAB PO SCH (08:06)
[2019-04-04] MEDS: CELECOXIB 100 MG CAP PO SCH ×2 (08:06→16:27)
[2019-04-04] MEDS: ceFAZolin SODIUM 2 GRAMS PREMI 2 GM in PREMIX BAG 1 BAG IVPB SCH (08:07)
[2019-04-04] MEDS: ENOXAPARIN SODIUM 30 MG/0.3 ML SYG SUBCU SCH ×2 (11:42→23:08)
--- NOTE | 2019-04-04 14:04 | PN ---
SUPERVISING PHYSICIAN: Channing Flynn MD DATE: 04/04/19 SUBJECTIVE: The patient is lying in her bed asleep. She awakens easily. She denies any nausea, vomiting, chest pain or shortness of breath. She does feel like her physical therapy went well this morning. OBJECTIVE: VITAL SIGNS: Temperature 98.6. Heart rate 70. Blood pressure 118/73. Respiratory rate 16. O2 saturation 99% on room air. RESPIRATORY: Essentially clear to auscultation bilaterally. CARDIAC: Regular rate and rhythm. GASTROINTESTINAL: Abdomen is soft, nondistended, nontender. Bowel sounds are positive. EXTREMITIES: Bilateral pedal pulses are palpable at +2. Her left knee has dressing dry and intact. NEUROLOGIC: Awake, alert and oriented times three. LABORATORY: Hemoglobin 10.7, hematocrit 32.8. Blood sugars have run between 191 and 246. Urine culture is pending. All other labs and films have been reviewed via the EMR. ASSESSMENT: 1. Left knee osteoarthritis status post left total knee arthroplasty performed by Dr. Patricio Moon, orthopedic surgeon, postoperative day #1. 2. Hypertension. 3. Type 2 diabetes mellitus. 4. Hyperlipidemia. PLAN: We will continue present supportive care. Orthopedic issues will be per Dr. Patricio Moon, orthopedic surgeon. Physical therapy will continue for strengthening and conditioning. She will have home health for a week or so after discharge. She lives in [place], but she is unsure which agency she will use. After completion of her home health physical therapy, she will continue with the physical therapy at [facility] Physical Therapy Department. I have encouraged good pulmonary hygiene. We will continue to monitor the patient closely and follow as needed. #[id number] [facility]
[2019-04-04] MEDS: traMADol HCL 50 MG TAB PO PRN ×2 (16:26→23:13)
[2019-04-04] MEDS: DOCUSATE CALCIUM 240 MG CAP PO SCH (21:19)
[2019-04-04] MEDS: TEMAZEPAM 15 MG CAP PO PRN (23:08)
[2019-04-05] MEDS: HYDROcodone 7.5MG/APAP 325MG 1 EA TAB PO PRN ×2 (06:11→20:48)
[2019-04-05] MEDS: CELECOXIB 100 MG CAP PO SCH ×2 (07:17→17:43)
[2019-04-05] MEDS: MAGNESIUM OXIDE 400 MG TAB PO SCH (08:26)
[2019-04-05] MEDS: SODIUM CHLORIDE 0.9% (FLUSH) 10 ML SYG IV SCH ×2 (08:26→20:47)
--- NOTE | 2019-04-05 08:27 | PN ---
DATE: 04/05/19 SUBJECTIVE: Ms. Villanueva is doing pretty well. She is up to a chair, eating breakfast and is comfortable. OBJECTIVE: Afebrile. Vital signs stable. Wound is clean. There are no signs or symptoms of infection. ASSESSMENT: Status post total knee arthroplasty. PLAN: The plan at this point is for her to continue with her weightbearing status. #[id number] [facility]
[2019-04-05] MEDS: traMADol HCL 50 MG TAB PO PRN ×2 (09:49→23:17)
[2019-04-05] MEDS: CYCLOBENZAPRINE HCL 10 MG TAB PO PRN ×2 (09:54→20:48)
[2019-04-05] MEDS: ENOXAPARIN SODIUM 30 MG/0.3 ML SYG SUBCU SCH ×2 (12:28→23:00)
--- NOTE | 2019-04-05 14:28 | PN ---
SUPERVISING PHYSICIAN: Channing Flynn MD DATE: 04/05/19 SUBJECTIVE: The patient is lying in bed. She has no complaints of shortness of breath, chest pain, nausea or vomiting. She feels she is doing well with her physical therapy. OBJECTIVE: VITAL SIGNS: Temperature 98.3. Heart rate 90. Blood pressure 115/78. Respiratory rate 16. O2 saturation 96% on room air. RESPIRATORY: Essentially clear to auscultation bilaterally. She is somewhat diminished at the bases. CARDIAC: Regular rate and rhythm. GASTROINTESTINAL: Abdomen is soft, nondistended, nontender. Bowel sounds are positive. EXTREMITIES: Bilateral pedal pulses are +2. Her left knee has dressing dry and intact. NEUROLOGIC: Awake, alert and oriented times three. ASSESSMENT: 1. Left knee osteoarthritis status post left total knee arthroplasty performed by Dr. Patricio Moon, orthopedic surgeon, postoperative day #2. 2. Hypertension. 3. Type 2 diabetes mellitus. 4. Hyperlipidemia. PLAN: We will continue present supportive care. Orthopedic issues will be per Dr. Patricio Moon, orthopedic surgeon. Physical therapy will continue for strengthening and conditioning. She will most likely be discharged Monday. On discharge, she will have [facility] and physical therapy for several weeks and then [facility]. I have encouraged good pulmonary hygiene. She has a pain contract Dr. Cheney, her primary care physician, and Dr. Moon is unable to give her her pain medications. I spoke with Dr. Cheney's office and they are going to refill her pain medications per their routine orders. I informed the patient her pain medications would be taken care of by Dr. Cheney's office. We will continue to monitor the patient closely and follow as needed. #[id number] [facility]
[2019-04-05] MEDS: DOCUSATE CALCIUM 240 MG CAP PO SCH (20:48)
[2019-04-05] MEDS: TEMAZEPAM 15 MG CAP PO PRN (23:19)
[2019-04-06] MEDS: HYDROcodone 7.5MG/APAP 325MG 1 EA TAB PO PRN ×3 (04:00→22:07)
[2019-04-06] MEDS: MAGNESIUM OXIDE 400 MG TAB PO SCH (08:10)
[2019-04-06] MEDS: CELECOXIB 100 MG CAP PO SCH ×2 (08:10→17:11)
[2019-04-06] MEDS: SODIUM CHLORIDE 0.9% (FLUSH) 10 ML SYG IV SCH ×2 (11:00→21:26)
[2019-04-06] MEDS: ENOXAPARIN SODIUM 30 MG/0.3 ML SYG SUBCU SCH ×2 (12:54→22:08)
[2019-04-06] MEDS: CYCLOBENZAPRINE HCL 10 MG TAB PO PRN (14:07)
[2019-04-06] MEDS: IV SET AND CAP CHANGE INJ INJ SCH (17:12)
[2019-04-06] MEDS ORDERED: BISACODYL SUPPOSITORY 10 MG PR ONE (21:00)
[2019-04-06] MEDS ORDERED: MAGNESIUM HYDROXIDE 30 ML UD PO ONE (21:00)
[2019-04-06] MEDS: DOCUSATE CALCIUM 240 MG CAP PO SCH (21:26)
[2019-04-07] MEDS: CYCLOBENZAPRINE HCL 10 MG TAB PO PRN ×2 (01:24→18:09)
[2019-04-07] MEDS: HYDROcodone 7.5MG/APAP 325MG 1 EA TAB PO PRN ×3 (05:01→20:54)
[2019-04-07] MEDS: CELECOXIB 100 MG CAP PO SCH ×2 (08:56→16:58)
[2019-04-07] MEDS: MAGNESIUM OXIDE 400 MG TAB PO SCH (08:56)
[2019-04-07] MEDS: SODIUM CHLORIDE 0.9% (FLUSH) 10 ML SYG IV SCH ×2 (09:18→20:55)
[2019-04-07] MEDS: ENOXAPARIN SODIUM 30 MG/0.3 ML SYG SUBCU SCH ×2 (11:08→23:04)
--- NOTE | 2019-04-07 16:42 | PN ---
DATE: 04/06/19 SUPERVISING PHYSICIAN: Channing Flynn M.D. SUBJECTIVE: The patient is asleep. She awakens easily. We discussed her discharge plan. We discussed that she could not go home because the patient was unable to do steps, and she does have steps at home. Medications were found in her bed which were identified as Tegretol and Celexa. I spoke with the patient at length about this and she refused to let her nurses have any of those medications to be locked up. I cautioned that if she was taking her own medications we would be unable to give her her routine medications. I spoke with Dr. Cheney's office the previous day and she is under a pain contract with him, and she was due to have her pain medications refilled. She did assure me that she is not taking any of her pain medications but still refused to give nurses her routine medications. Otherwise she denies nausea, vomiting, diarrhea or constipation, shortness of breath or chest pain. OBJECTIVE: VITAL SIGNS: Temperature 98.8, heart rate 99, blood pressure 108/68, respiratory rate 16, O2 sat 97% on room air. RESPIRATORY: Essentially clear to auscultation bilaterally. CARDIAC: Regular rate and rhythm. GASTROINTESTINAL: Abdomen is soft, nondistended, non-tender. Bowel sounds are positive. EXTREMITIES: Bilateral pedal pulses are +2. Left knee has a dressing on it that is dry and intact. It is without signs or symptoms of complications. NEUROLOGIC: She is awake, alert and oriented times three. LABORATORY: There are no labs or films to report at this time. ASSESSMENT: 1. Left knee osteoarthritis status post left total knee arthroplasty performed by Dr. Patricio Moon, orthopedic surgeon, postoperative day #3. 2. Hypertension. 3. Type 2 diabetes mellitus. 4. Hyperlipidemia. PLAN: We will continue present supportive care. I spoke to the Healthcare Social Worker, Moise Torres, and he would attempt to send a physical therapist over the weekend to reevaluate the patient and to see if she could do stairs, but until she is clear for stair climbing she will remain in the hospital. She will continue with physical therapy for strengthening and conditioning when the physical therapists are available. Otherwise nursing will assist with her getting up and assisting her with walking. I am very cautious about administering her home medications because of her refusal to let us see what medications she is taking. Right now her vital signs are stable. We will just continue to monitor closely. Hopefully she can be discharged in the next several days once she is cleared by Physical Therapy for stairs. [facility][id number] [facility]
--- NOTE | 2019-04-07 17:08 | PN ---
DATE: 04/07/19 SUPERVISING PHYSICIAN: Channing Flynn M.D. SUBJECTIVE: The patient is sitting in her chair. She has no complaints. Family is at the bedside. She has no shortness of breath or chest pain. No nausea or vomiting. She feels like her physical therapy is going okay and she is looking forward to attempting the steps again as then she thinks she can go home. OBJECTIVE: VITAL SIGNS: Temperature 97.8, heart rate 68, blood pressure 106/73, respiratory rate 94. RESPIRATORY: Essentially clear to auscultation bilaterally. CARDIAC: Regular rate and rhythm. GASTROINTESTINAL: Abdomen is soft, nondistended, non-tender. Bowel sounds are positive. EXTREMITIES: Left knee has a dressing that is dry and intact. Bilateral pedal pulses are +2. NEUROLOGIC: She is awake, alert and oriented times three. LABORATORY: There are no labs or films to report at this time. ASSESSMENT: 1. Left knee osteoarthritis status post left total knee arthroplasty performed by Dr. Patricio Moon, orthopedic surgeon, postoperative day #4. 2. Hypertension. 3. Type 2 diabetes mellitus. 4. Hyperlipidemia. PLAN: We will continue present supportive care. Orthopedic issues will be per Dr. Patricio Moon, orthopedic surgeon. She will continue with physical therapy for strengthening and conditioning as soon as they are available. At this point we will be unable to discharge her home as she was unable to complete her steps at physical therapy yesterday and she has steps at home, so we will need to keep her here until she passes her step testing. The nurses will get her out of bed and help her in her room. Will encourage good pulmonary hygiene. Hopefully she can be discharged in the next 1 to 2 days after physical therapy clearance. #[id number] [facility]
[2019-04-07] MEDS: DOCUSATE CALCIUM 240 MG CAP PO SCH (20:55)
[2019-04-08] MEDS: CELECOXIB 100 MG CAP PO SCH (07:07)
[2019-04-08] MEDS: SODIUM CHLORIDE 0.9% (FLUSH) 10 ML SYG IV SCH (08:17)
[2019-04-08] MEDS: MAGNESIUM OXIDE 400 MG TAB PO SCH (08:17)
[2019-04-08] MEDS: traMADol HCL 50 MG TAB PO PRN (08:48)
[2019-04-08] MEDS: CYCLOBENZAPRINE HCL 10 MG TAB PO PRN (08:48)
[2019-04-08 10:20] VITALS: BP 105/75; TEMP 97.6; O2SAT 96
[2019-04-08] MEDS: ENOXAPARIN SODIUM 30 MG/0.3 ML SYG SUBCU SCH (10:31)
--- NOTE | 2019-04-09 14:48 | DS ---
SUPERVISING PHYSICIAN: Loren Nascimento MD ADMISSION DIAGNOSIS: 1. Left knee osteoarthritis status post left total knee arthroplasty, postoperative day #0. 2. Hypertension. 3. Type 2 diabetes mellitus. 4. Hyperlipidemia. DISCHARGE DIAGNOSIS: 1. Left knee osteoarthritis status post left total knee arthroplasty performed by Dr. Patricio Moon, orthopedic surgeon, postoperative day #5. 2. Hypertension. 3. Type 2 diabetes mellitus. 4. Hyperlipidemia. REASON FOR HOSPITALIZATION: This is a 54-year-old female who has some significant left knee osteoarthritis which failed outpatient conservative measures. Therefore, she underwent a left total knee arthroplasty today. There were no intraoperative complications. She is currently sitting up in bed and is awake, alert and oriented. She has complaints of pain, but states her pain is controlled with the DRY SANDER. LABORATORY: Postoperative hemoglobin 10.7 and hematocrit 32.8. Urine drug screen was negative. MICROBIOLOGY: Urine culture done on 03/28/19. Refer to that report through Dr. Moon's office. RADIOLOGY: See the postoperative x-ray done per Radiology. PROCEDURE: Left total knee arthroplasty. CONSULTATION: Medical consultation per hospitalist services, please see that note for details. OPERATIVE NOTES: Orthopedic services, see Dr. Moon's note for details. HOSPITAL COURSE: Ms. Villanueva was admitted for elective left total knee arthroplasty. She had no complications intraoperatively. She was followed postoperatively without any complications. She had good pain control. It was felt on the morning of discharge she could continue with outpatient management through [facility] for physical therapy. PLAN: Ms. Villanueva was discharged with instructions to followup with Dr. Moon as scheduled. She was to call Dr. Cheney's office on Monday for refill on her hydrocodone as she is under pain contract with Dr. Cheney. She was to resume her home medications as instructed and return to the hospital or call Dr. Moon if she had any concerning symptoms. Diet at discharge was regular diet as tolerated. Activities per physical therapy. Wound management through Dr. Moon's postoperative management instructions. MEDICATIONS PRESCRIBED ON DISCHARGE: 1. Xarelto 10 mg daily, #7. 2. All other medications prior to hospitalization were continued. DISPOSITION: The patient was discharged home. CONDITION ON DISCHARGE: Stable and improved. [facility][id number] [facility]
== END 2019-04-08 11:15 | disposition home health service (06) | DRG 470 ==
LOC: AMB 05:25 → MS 10:20
PROVIDERS: ADMIT Orthopaedic Surgery; ATTEND Nurse Practitioner Family
PROC: 3E0T3BZ Introduction of Anesthetic Agent into Peripheral Nerves and Plexi, Percutaneous Approach (ICD-10-PCS; 2019-04-03)
PROC: 0SRD0J9 Replacement of Left Knee Joint with Synthetic Substitute, Cemented, Open Approach (ICD-10-PCS; principal; 2019-04-03 07:00)
DX: M17.12 Unilateral primary osteoarthritis, left knee (principal); M85.80 Other specified disorders of bone density and structure, unspecified site; E78.5 Hyperlipidemia, unspecified; I10 Essential (primary) hypertension; K21.9 Gastro-esophageal reflux disease without esophagitis; E11.9 Type 2 diabetes mellitus without complications; F31.9 Bipolar disorder, unspecified; Z96.651 Presence of right artificial knee joint; Z88.0 Allergy status to penicillin; Z88.1 Allergy status to other antibiotic agents; Z87.891 Personal history of nicotine dependence; Z79.84 Long term (current) use of oral hypoglycemic drugs; Z79.899 Other long term (current) drug therapy

== ENCOUNTER 2019-05-14 05:41 | Day surgery (SDC) | payer MEDICARE, MEDICAID ==
[2019-05-14] MEDS ORDERED: LIDOCAINE 1% 10 ML VIAL INJ ONE (10:00)
[2019-05-14] MEDS ORDERED: PROPOFOL 200 MG/20 ML VIAL IV ONE (10:00)
[2019-05-14] MEDS ORDERED: LACTATED RINGERS 1,000 ML ONE (13:40)
[2019-05-14] MEDS ORDERED: LACTATED RINGERS 1,000 ML IVS ONE (14:08)
[2019-05-14] MEDS ORDERED: fentaNYL CITRATE INJ 50 MCG/ML AMP ONE (14:29)
[2019-05-14] MEDS ORDERED: KETAMINE HCL 100 MG/ML VIAL ONE (14:31)
[2019-05-14] MEDS ORDERED: KETOROLAC TROMETHAMINE INJ 30 MG/ML VIAL ONE ×2 (15:02→15:14)
[2019-05-14] MEDS ORDERED: HYDROcodone 5MG/APAP 325MG 1 EA TAB ONE (15:02)
[2019-05-14 16:32] VITALS: BP 123/91; TEMP 97.3; O2SAT 100
--- NOTE | 2019-05-15 08:16 | OP ---
DATE OF PROCEDURE: 05/14/19 PREOPERATIVE DIAGNOSIS: 1. Arthrofibrosis. POSTOPERATIVE DIAGNOSIS: 1. Arthrofibrosis. PROCEDURE: 1. Manipulation under anesthesia. SURGEON: Patricio Moon MD. PREFABRICATOR: Christiano Piña CST, SA-C. ANESTHESIA: Conscious sedation. COMPLICATIONS: None. FINDINGS: Preoperative range from 5 to approximately 90 to 95 degrees. Postoperative range from near full extension to approximately 115 to 120 degrees. INDICATION: Randa has a history of total knee arthroplasty. She has not been very aggressive on her therapy and she has had to undergo this before this on her contralateral knee. Because of her limitations, we talked about options. After discussing the risks, benefits and alternatives to closed manipulation, she gave informed consent. PROCEDURE: The patient was brought to the Operating Room and placed in supine position. Sedation was administered and the knee was hyperflexed. Full extension was attained. After fluoroscopic confirmation of no acute complications, the patients was taken to the Day Surgery Unit. POSTOPERATIVE PLAN: The patient is going to begin aggressive physical therapy and I really encouraged both her and her to be very vigilant about the therapy. I have encouraged her to do formal physical therapy as soon as possible. I am going to see her back again in about 2 weeks. #[id number] [facility]
--- NOTE | 2019-05-15 10:21 | RAD ---
EXAM DESCRIPTION: Fluoroscopy Up to 1Hr CLINICAL HISTORY: 54 years Female, SADAF LEFT KNEE COMPARISON: Left knee radiograph 04/03/2019 IMPRESSION: Multiple intraoperative fluoroscopic images saved for the benefit of the surgeon. Total left knee arthroplasty observed on the single provided image. Please see procedure report for full details. Fluoroscopy time: 3.9 seconds Fluoroscopic images: 1 Total dose: 0.24 mGy Electronically signed by: Austin Lo MD 05/15/2019 10:20 AM CDT
== END 2019-05-14 16:10 | disposition home or self-care (01) ==
LOC: AMB 05:41
PROVIDERS: ATTEND Orthopaedic Surgery
DX: M24.662 Ankylosis, left knee (principal); Z88.0 Allergy status to penicillin; Z88.8 Allergy status to other drugs, medicaments and biological substances; Z96.653 Presence of artificial knee joint, bilateral; Z79.84 Long term (current) use of oral hypoglycemic drugs; Z79.01 Long term (current) use of anticoagulants; Z79.899 Other long term (current) drug therapy
CPT/HCPCS: 01380; 27570; 36416; 76000; 80307; 82948; J1885; J3010; J3490; J7120

== ENCOUNTER → 2019-09-23 | Outpatient (CLI) | payer MEDICARE, MEDICAID | LOC: GMAM 10:37 | PROVIDERS: ATTEND Family Medicine | DX: E03.9 Hypothyroidism, unspecified (principal); E11.9 Type 2 diabetes mellitus without complications; I10 Essential (primary) hypertension ==

== ENCOUNTER → 2020-01-30 | Outpatient (CLI) | payer MEDICARE, MEDICAID ==
--- NOTE | 2020-01-30 13:17 | RAD ---
EXAM DESCRIPTION: Knee,Left Complete CLINICAL HISTORY: 55 years, Female, PAIN IN LEFT KNEE COMPARISON: April 03, 2019 TECHNIQUE: Four views left knee FINDINGS: Left total knee prosthesis is noted in place. Very small joint effusion on the lateral view is evident. A prosthetic articular component of the patella is not identified. No evidence of prosthetic loosening or periprosthetic fracture seen. Not evident on the postoperative lateral view a small angular radiopaque density at the posterior margin of the joint space on the lateral view as well as two small flecks of density anteriorly suggest the possibility of intra-articular loose bodies, possibly radiopaque cement. IMPRESSION: 1. Left total knee replacement with satisfactory alignment without evidence of loosening. 2. Questionable multiple radiopaque loose bodies evident on the lateral view posteriorly and anteriorly with small joint effusion noted. Electronically signed by: Zeus Mercer MD 01/30/2020 1:16 PM CDT
--- NOTE | 2020-01-30 13:23 | RAD ---
EXAM DESCRIPTION: Pelvis CLINICAL HISTORY: 55 years Female, HIP PAIN LEFT COMPARISON: August 16, 2018 FINDINGS: Bony pelvic ring is intact with no evidence of fracture or abnormality of the SI joints sacrum or symphysis. Normal alignment of the hip joints on the AP view noted. No pelvic soft tissue masses seen. Bilateral pelvic phleboliths evident. IMPRESSION: Negative pelvis one view. Electronically signed by: Zeus Mercer MD 01/30/2020 1:21 PM CDT
== END ==
LOC: RAD 08:29
PROVIDERS: ATTEND Orthopaedic Surgery
DX: T84.093A Other mechanical complication of internal left knee prosthesis, initial encounter (principal); M25.462 Effusion, left knee; Z96.652 Presence of left artificial knee joint; M25.552 Pain in left hip

== ENCOUNTER 2020-03-28 16:11 | Emergency (ER) | payer MEDICARE, MEDICAID ==
[2020-03-28] MEDS ORDERED: SODIUM CHLORIDE 0.9% (FLUSH) 10 ML SYG IV PRN (16:25)
[2020-03-28] MEDS ORDERED: ONDANSETRON INJ 4 MG/2 ML VIAL IV ONE (16:26)
[2020-03-28] MEDS ORDERED: SODIUM CHLORIDE 0.9% 1000ML 1,000 ML IVS ONE (16:26)
--- NOTE | 2020-03-28 16:34 | ED.PDOC ---
History of Present Illness - General Chief Complaint: General Stated Complaint: nausea,dizziness,NOLEN,SOB Time Seen by Provider: 03/28/20 16:25 Source: patient - History of Present Illness Initial Comments: 55 yo female with PMH of HTN, DM2 who presents with cc of headache. Onset this morning with gradual worsening throughout the day, located to the front of her head with radiation to the back and right of her head and into the right part of her neck, constant, throbbing, 10/10 severity, worse with bright lights and sounds, no medications taken for relief. She also reports symptoms of sore throat yesterday but not today, intermittent right lower back pains, nausea, dizziness. Denies any chest pain, cough, fevers, chills, urinary symptoms, leg swelling, abdominal pain, diarrhea. She states she was admitted last week in [facility] for low sodium levels. PCP is Dr. Cheney. Allergies/Adverse Reactions: Allergies Penicillins Allergy (Mild, Verified 05/09/19 14:12) Levofloxacin [From Levaquin] Allergy (Verified 05/09/19 14:12) Home Medications: Ambulatory Orders Carbamazepine [Tegretol-Xr] 400 mg PO BID 06/27/14 Simvastatin [Zocor] 20 mg PO BEDTIME 05/26/15 HYDROcodone 7.5MG/APAP 325MG [[place] 7.5/325] 1 - 2 tab PO .Q4H PRN 05/30/15 Eletriptan Hydrobromide [Relpax] 20 mg PO PRN PRN 03/28/17 Escitalopram Oxalate [Lexapro] 10 mg PO DAILY@0700 03/28/17 Metformin HCl [Metformin Hydrochloride] 1,000 mg PO BID 03/28/17 Lisinopril 10 mg PO DAILY 06/22/18 Dexlansoprazole [Dexilant] 60 mg PO DAILY 12/14/18 Levothyroxine Sodium [Synthroid] 88 mcg PO DAILY 02/11/19 Melatonin 3 - 6 mg PO BEDTIME 02/11/19 Zoster Vaccine Recombinant Adj [Shingrix] 50 mcg IM ONCE 02/11/19 tiZANidine [Zanaflex] 4 mg PO Q6H PRN 04/03/19 Rivaroxaban [Xarelto] 10 mg PO DAILY #7 tab 04/06/19 Soplgnades-Lwobxqkdgujxv-Admfw [Fioricet] 1 cap PO Q4H PRN 14 Days #10 cap 03/28/20 Nitrofurantoin Monohydrate Mac [Macrobid] 100 mg PO BID 7 Days #14 capsule 03/28/20 Review of Systems - Review of Systems Review of Systems: 03/28/20 17:16 as per HPI All other Systems: Reviewed and Negative Past Medical History (General) - Patient Medical History Hx Seizures: No Hx Stroke: No Hx Asthma: No Hx of COPD: No Hx Cardiac Disorders: Yes - [place] in her 20's Hx Congestive Heart Failure: No Hx Pacemaker: No Hx Hypertension: Yes Hx Diabetes: Yes Hx Gastroesophageal Reflux: No Hx MRSA: No MRSA Source:: nasal swab Surgical History: cholecystectomy, Hysterectomy - Vaccination History Hx Tetanus, Diphtheria Vaccination: Yes Hx Influenza Vaccination: Yes Hx Pneumococcal Vaccination: No - Social History Hx Tobacco Use: Yes Hx Alcohol Use: No Hx Substance Use: No Hx Substance Use Treatment: No Hx Depression: Yes Hx Physical Abuse: No Hx Emotional Abuse: No - Female History Patient : No Family Medical History - Family History Mother Family History: No Known Living Status: Hx Family Diabetes: Yes - multiple family members Hx Family;Other: migraine headache-multiple family members Physical Exam - Physical Exam General Appearance: Alert, Comfortable, No apparent distress Eye Exam: bilateral normal Ears, Nose, Throat: normal ENT inspection, normal pharynx Neck: non-tender, full range of motion, supple, normal inspection Respiratory: lungs clear, normal breath sounds, no respiratory distress, no accessory muscle use Cardiovascular/Chest: normal peripheral pulses, regular rate, rhythm, no edema, no gallop, no JVD, no murmur Peripheral Pulses: radial,right: 2+, radial,left: 2+ Gastrointestinal/Abdominal: non tender, soft, no organomegaly Back Exam: normal inspection, no CVA tenderness, no vertebral tenderness Extremity: normal range of motion, non-tender, normal inspection, no pedal edema, no calf tenderness Neurologic: production artist II-XII nml as tested, no motor/sensory deficits, alert, normal mood/affect, oriented x 3 Skin Exam: normal color, warm/dry Progress - Progress Progress: 03/28/20 17:17 Headache, sore throat, dizziness -Consider migraine, tension headache, strep throat, dehydration, gastroenteritis, UTI, electrolyte derangement, ACS, arrhythmia, other -Patient stable, no acute distress -Obtain blood work, cardiac work-up, strep, UA -Place peripheral IV, 1 L normal saline bolus, Toradol 30 mg IV, Phenergan, Zofran as needed 03/28/20 20:03 -Labs pertinent for mild anemia, mild hypokalemia (replenished orally in ED), and slightly abnormal UA. Given her right lower back pain, concern for possible early UTI. Will treat with Macrobid 100 mg p.o. twice daily for 7 days, first dose in the ED. -Patient remained stable, reports markedly improved pain. She is eager to go home. Will send home also on Fioricet as needed prescription. Advised to follow-up closely with her PCP. Return warnings discussed at length. Elgin Jones MD Billing #[id number] 03/28/20 16:25 Sodium Chloride 0.9% (Flush) [Saline Flush Syringe] 10 ml IV PRN PRN Pulse Oximetry Assessment DAILY 03/28/20 16:30 EKG STAT 03/28/20 18:35 STREP A SCREEN CULTURE Stat 03/28/20 19:58 Promethazine HCl Inj [Phenergan Inj] 12.5 mg Sodium Chloride 0.9% 50Ml [NS 50ml] 50 ml IVPB ONCE 03/29/20 09:00 Pulse Ox Daily Laboratory Results - last 24 hr 03/28/20 03/28/20 03/28/20 16:35 16:35 16:35 WBC 7.5 RBC 3.81 L Hgb 11.7 L Hct 33.9 L MCV 88.8 MCH 30.7 MCHC 34.5 RDW 17.3 H Plt Count 243 MPV 7.8 Absolute Neuts (auto) 4.60 Absolute Lymphs (auto) 2.10 Absolute Monos (auto) 0.50 Absolute Eos (auto) 0.20 Absolute Basos (auto) 0.10 Neutrophils % 61.1 Lymphocytes % 28.3 Monocytes % 6.7 Eosinophils % 2.6 Basophils % 1.3 Sodium 136 Potassium 3.2 L Chloride 100 L Carbon Dioxide 25 Anion Gap 14.2 BUN 8 Creatinine 0.59 L BUN/Creatinine Ratio 13.6 Random Glucose 167 H Serum Osmolality 274.1 L Calcium 8.1 L Total Bilirubin 0.5 AST 46 H ALT 31 Alkaline Phosphatase 67 Troponin I < 0.02 B-Natriuretic Peptide 59.9 Serum Total Protein 6.4 Albumin 3.3 Globulin 3.1 Albumin/Globulin Ratio 1.1 Urine Color Urine Appearance Urine pH Ur Specific [place] Urine Protein Urine Glucose (UA) Urine Ketones Urine Blood Urine Nitrite Urine Bilirubin Urine Urobilinogen Ur Leukocyte Esterase Urine RBC Urine WBC Ur Epithelial Cells Urine Bacteria Group A Strep Rapid 03/28/20 03/28/20 18:35 18:35 WBC RBC Hgb Hct MCV MCH MCHC RDW Plt Count MPV Absolute Neuts (auto) Absolute Lymphs (auto) Absolute Monos (auto) Absolute Eos (auto) Absolute Basos (auto) Neutrophils % Lymphocytes % Monocytes % Eosinophils % Basophils % Sodium Potassium Chloride Carbon Dioxide Anion Gap BUN Creatinine BUN/Creatinine Ratio Random Glucose Serum Osmolality Calcium Total Bilirubin AST ALT Alkaline Phosphatase Troponin I B-Natriuretic Peptide Serum Total Protein Albumin Globulin Albumin/Globulin Ratio Urine Color Yellow Urine Appearance Clear Urine pH 6.0 Ur Specific [place] 1.015 Urine Protein Negative Urine Glucose (UA) Negative Urine Ketones Negative Urine Blood Negative Urine Nitrite Negative Urine Bilirubin Negative Urine Urobilinogen 0.2 Ur Leukocyte Esterase Trace H Urine RBC 0 Urine WBC 1-3 Ur Epithelial Cells 1-3 Urine Bacteria 0 Group A Strep Rapid Negative - EKG/XRAY/CT EKG: Sinus - Normal sinus rhythm, heart rate 65, no ST elevations noted, Q waves noted in inferior leads likely indicative of prior AL, minimal ST segment depressions noted in anteroseptal leads, T wave inversions noted in anteroseptal leads, axis/intervals nml, compared to 07/18/16 EKG appears unchanged XRAY: chest - No acute processes per my read Departure - Departure Clinical Impression: Migraine Qualifiers: Migraine type: unspecified Status migrainosus presence: without status migrainosus Intractability: not intractable Qualified Code(s): G43.909 - Migraine, unspecified, not intractable, without status migrainosus UTI (urinary tract infection) Qualifiers: Urinary tract infection type: acute cystitis Hematuria presence: without hematuria Qualified Code(s): N30.00 - Acute cystitis without hematuria Time of Disposition: 19:59 Disposition: Discharge to Home or Self Care Condition: Good Departure Forms: ED Discharge - Pt. Copy, Patient Portal Self Enrollment Instructions: Migraines (DC) Diet: resume usual diet Activity: increase activity as tolerated Referrals: Zeus Cheney MD [Primary Care Provider] - 1-2 Weeks Prescriptions: Tlsoylpfkt-Hjcsusgmjphgq-Rzocx [Fioricet] 1 cap PO Q4H PRN 14 Days #10 cap PRN Reason: Headache/Migraine Pain Nitrofurantoin Monohydrate Mac [Macrobid] 100 mg PO BID 7 Days #14 capsule Home Medications: Ambulatory Orders Carbamazepine [Tegretol-Xr] 400 mg PO BID 06/27/14 Simvastatin [Zocor] 20 mg PO BEDTIME 05/26/15 HYDROcodone 7.5MG/APAP 325MG [[place] 7.5/325] 1 - 2 tab PO .Q4H PRN 05/30/15 Eletriptan Hydrobromide [Relpax] 20 mg PO PRN PRN 03/28/17 Escitalopram Oxalate [Lexapro] 10 mg PO DAILY@0700 03/28/17 Metformin HCl [Metformin Hydrochloride] 1,000 mg PO BID 03/28/17 Lisinopril 10 mg PO DAILY 06/22/18 Dexlansoprazole [Dexilant] 60 mg PO DAILY 12/14/18 Levothyroxine Sodium [Synthroid] 88 mcg PO DAILY 02/11/19 Melatonin 3 - 6 mg PO BEDTIME 02/11/19 Zoster Vaccine Recombinant Adj [Shingrix] 50 mcg IM ONCE 02/11/19 tiZANidine [Zanaflex] 4 mg PO Q6H PRN 04/03/19 Rivaroxaban [Xarelto] 10 mg PO DAILY #7 tab 04/06/19 Rkqosmzvzx-Auonkkxarwyjv-Orzyk [Fioricet] 1 cap PO Q4H PRN 14 Days #10 cap 03/28/20 Nitrofurantoin Monohydrate Mac [Macrobid] 100 mg PO BID 7 Days #14 capsule 03/28/20 Additional Instructions: Remain well-hydrated and gradually advance her diet and activity level as tolerated. May continue to take ibuprofen 600 mg every 6 hours as needed and/or Tylenol 650 mg every 6 hours as needed for pain or headache. You may take the Fioricet as directed for headache not controlled by [id number] medications. Return to the ED if you develop any concerning symptoms such as rapidly worsening or severe headache, confusion, fevers, neck stiffness, chest pain, shortness of breath, intractable nausea and vomiting, etc. Follow-up with your primary care physician is recommended in the next 1 to 2 weeks for repeat evaluation or sooner as needed. Take the antibiotics as directed for urinary tract infection and finish the full course even if well.
--- NOTE | 2020-03-28 16:55 | RAD ---
EXAM DESCRIPTION: Chest,1 View CLINICAL HISTORY: 55 years Female dizzy COMPARISON: 07/18/2016. FINDINGS: The study is slightly suboptimal from patient body habitus. The cardiomediastinal silhouette appears unremarkable. Mild elevation of the right hemidiaphragm. No consolidating infiltrates or pleural effusions. No pneumothorax. Spinal stimulator device overlying the mid thoracic spine. IMPRESSION: No acute abnormality is identified. Electronically signed by: Slade Amado MD 03/28/2020 4:53 PM CDT
[2020-03-28] MEDS ORDERED: PROMETHAZINE HCL INJ 12.5 MG in SODIUM CHLORIDE 0.9% 50ML 50 ML IVPB ONE (17:14)
[2020-03-28] MEDS ORDERED: KETOROLAC TROMETHAMINE INJ 30 MG/ML VIAL IV ONE (17:14)
[2020-03-28] MEDS ORDERED: POTASSIUM CHLORIDE 20 MEQ TAB PO ONE ×2 (17:20→19:51)
[2020-03-28] MEDS ORDERED: NITROFURANTOIN MONOHYDRATE MAC 100 MG CAP PO ONE (19:58)
[2020-03-28] MEDS ORDERED: PROMETHAZINE HCL INJ 25 MG/ML VIAL ONE (20:00)
[2020-03-28] MEDS ORDERED: NITROFURANTOIN MONOHYDRATE MAC 100 MG CAP ONE (20:00)
[2020-03-28] MEDS ORDERED: SODIUM CHLORIDE 0.9% 50ML 50 ML ONE (20:00)
[2020-03-28] MEDS: PROMETHAZINE HCL INJ 12.5 MG in SODIUM CHLORIDE 0.9% 50ML 50 ML IVPB ONE ×2 (20:03→20:04)
[2020-03-28 20:34] VITALS: BP 137/95; TEMP 97.9; O2SAT 98
== END 2020-03-28 20:14 | disposition home or self-care (01) ==
LOC: ER 16:11
DX: G43.909 Migraine, unspecified, not intractable, without status migrainosus (principal); N30.00 Acute cystitis without hematuria; I10 Essential (primary) hypertension; E11.9 Type 2 diabetes mellitus without complications; R42 Dizziness and giddiness; I25.2 Old myocardial infarction; Z79.01 Long term (current) use of anticoagulants; Z79.899 Other long term (current) drug therapy; Z79.84 Long term (current) use of oral hypoglycemic drugs; Z88.0 Allergy status to penicillin; Z88.1 Allergy status to other antibiotic agents
CPT/HCPCS: 36415; 71045; 80053; 81001; 83880; 84484; 85025; 87070; 87880; 93005; 94760; A4216; J1885; J2405; J2550; J7030

== ENCOUNTER → 2020-07-21 | Outpatient (CLI) | payer MEDICARE, MEDICAID | LOC: GMAM 15:10 | PROVIDERS: ATTEND Family Medicine | DX: E53.8 Deficiency of other specified B group vitamins (principal); E03.9 Hypothyroidism, unspecified; I10 Essential (primary) hypertension; E11.9 Type 2 diabetes mellitus without complications; E78.2 Mixed hyperlipidemia ==